=== PATIENT | male | born 1995 | race Caucasian/White ===

== ENCOUNTER 2016-08-15 20:26 | Emergency (ER) | payer OTHER ==
[2016-08-15 20:31] VITALS: BP 108/71
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
== END 2016-08-15 21:10 ==
LOC: ED 20:26
DX: Z04.1 Encounter for examination and observation following transport accident (principal); F17.210 Nicotine dependence, cigarettes, uncomplicated; Z04.8 Encounter for examination and observation for other specified reasons
CPT/HCPCS: 99282

== ENCOUNTER 2016-09-13 08:35 | Emergency (ER) | payer OTHER ==
[2016-09-13] MEDS ORDERED: NS 0.9% 1000 ML* 1,000 ML IV ONE (09:08)
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
--- NOTE | 2016-09-13 09:54 | RAD ---
INDICATION: Dizziness and wheezing. COMPARISON: Comparison is made with a prior chest x-ray study from January 28, 2015. TECHNIQUE: AP and lateral views of the chest were obtained. FINDINGS: The heart is within normal limits in size. Mediastinal and hilar contours appear within normal limits. The lungs are clear. No pleural effusion is present. IMPRESSION: NO EVIDENCE FOR ACTIVE CARDIOPULMONARY DISEASE.
[2016-09-13 09:56] LABS: Hematocrit 44 % (42-52); Hemoglobin 14.6 g/dl (14.0-18.0); Mean Corpuscular HGB Conc 34 g/dl (31-36); Mean Corpuscular Hemoglobin 29 pg (27-31); Mean Corpuscular Volume 86 fL (80-94); Mean Platelet Volume 8 um3 (7.4-10.4); Red Blood Count 5.09 10^6/ul (4.0-5.4); Red Cell Distribution Width 15 % (10.5-15); White Blood Count 13.9 10^3/ul (3.5-10.8)
[2016-09-13] MEDS ORDERED: Mouth Piece, Nicotine* 1 EACH CARTRIDGE INH PRN (10:03)
[2016-09-13 10:13] LABS: Albumin 4.2 g/dL (3.2-5.2); BUN/Creatinine Ratio 13.2 (8-20); Calcium 9.3 mg/dL (8.6-10.3); EGFR African American 102.4 (>60); EGFR Non-African American 79.6 (>60); Globulin 2.9 g/dL (2-4); Potassium 3.7 mmol/L (3.5-5.0); Total Bilirubin 0.3 mg/dL (0.2-1.0); Total Protein 7.1 g/dL (6.4-8.9)
[2016-09-13] MEDS ORDERED: Nicotine Inhaler* 10 MG AMP ONE (10:14)
[2016-09-13] MEDS ORDERED: Nicotine Inhaler* 10 MG AMP INH ONE (10:16)
[2016-09-13 10:39] LABS: TSH (Thyroid Stimulating Horm) 1.73 mcIU/mL (0.34-5.60)
[2016-09-13 11:17] VITALS: BP 137/86
== END 2016-09-13 11:46 | disposition left against medical advice (07) ==
LOC: ED 08:35
DX: R20.0 Anesthesia of skin (principal); F41.1 Generalized anxiety disorder; Z87.898 Personal history of other specified conditions; R53.1 Weakness; Z53.21 Procedure and treatment not carried out due to patient leaving prior to being seen by health care provider
CPT/HCPCS: 36415; 70450; 71020; 72125; 80053; 83605; 83735; 84443; 84484; 85025; 85610; 85730; 99282; A9270-GY

== ENCOUNTER 2016-12-21 14:08 | Emergency (ER) | payer OTHER ==
[2016-12-21 14:49] VITALS: BP 136/83
== END 2016-12-21 17:10 | disposition left against medical advice (07) ==
LOC: UCEAST 14:08
DX: Z53.21 Procedure and treatment not carried out due to patient leaving prior to being seen by health care provider (principal)

== ENCOUNTER 2017-01-03 07:54 | Emergency (ER) | payer OTHER ==
[2017-01-03 08:04] VITALS: BP 124/73
[2017-01-03] MEDS ORDERED: HYDROcodone/ACETAMIN 5-325 MG* 1 TAB PO ONE (08:12)
[2017-01-03] MEDS ORDERED: Ibuprofen TAB* 600 MG PO ONE (08:12)
[2017-01-03] MEDS ORDERED: Amoxicillin/Clavulanate TAB* 875 MG PO ONE (08:13)
[2017-01-03] MEDS ORDERED: Ciprofloxacin TAB* 500 MG PO ONE (08:15)
--- NOTE | 2017-01-03 08:21 | UC ---
Ear Complaint HPI - HPI Summary HPI Summary: L ear pain for about a month. Has noticed "bump" in ear canal, some drainage. Much worse in the last 2 days with marked swelling, drainage, and pain. Cannot hear normally. - History of Current Complaint Chief Complaint: UCEar Stated Complaint: EAR PAIN Time Seen by Provider: 01/03/17 08:03 Hx Obtained From: Patient Onset/Duration: Gradual Onset, Lasting Weeks Severity Initially: Mild Severity Currently: Severe Alleviating Factors: Nothing Associated Signs/Symptoms: Positive: Discharge, Hearing Loss - Allergies/Home Medications Allergies/Adverse Reactions: Allergies Allergy/AdvReac Type Severity Reaction Status Date / Time No Known Allergies Allergy Verified 10/01/16 10:43 PMH/Surg Hx/FS Hx/Imm Hx Previously Healthy: Yes - Surgical History Surgical History: None Surgery Procedure, Year, and Place: none - Family History Known Family History: Positive: Cardiac Disease - CAD and [place] <55, Other - Mother w/ unspecified MH problems, of accidental - Social History Occupation: Employed Full-time Lives: With Family Alcohol Use: Rare Substance Use Type: Marijuana Substance Use Comment - Amount & Last Used: once a moth Smoking Status (MU): Heavy Every Day Tobacco Smoker Type: eCigarettes Amount Used/How Often: 1 ppd Length of Time of Smoking/Using Tobacco: 5 years Have You Smoked in the Last Year: Yes Household Exposure Type: Cigarettes - Immunization History Most Recent Influenza Vaccination: 2013 Most Recent Tetanus Shot: patient states up to date Most Recent Pneumonia Vaccination: never Review of Systems Constitutional: Negative Skin: Negative Eyes: Negative ENT: Ear Ache Respiratory: Negative Cardiovascular: Negative Gastrointestinal: Negative Genitourinary: Negative Motor: Negative Neurovascular: Negative Musculoskeletal: Negative Neurological: Negative Psychological: Negative All Other Systems Reviewed And Are Negative: Yes Physical Exam Triage Information Reviewed: Yes Appearance: Well-Nourished, Pain Distress - mod Vital Signs: Initial Vital Signs Temp 98 F 01/03/17 08:02 Pulse 119 01/03/17 08:02 Resp 20 01/03/17 08:02 BP 124/73 01/03/17 08:02 Pulse Ox 100 01/03/17 08:02 Vital Signs Reviewed: Yes Eye Exam: Normal, Other - PERRL Eyes: Positive: Conjunctiva Clear ENT Exam: Other - swelling around L ear, large preauricular node ENT: Positive: Pharynx normal, TMs normal - R only, Other: - swelling, discharge coming from L ear canal, unable to see L TM Dental Exam: Normal Neck exam: Normal Neck: Positive: Supple, Nontender Respiratory Exam: Normal Respiratory: Positive: Chest non-tender, Lungs clear, Normal breath sounds, No respiratory distress, No accessory muscle use Cardiovascular Exam: Normal Cardiovascular: Positive: RRR, No Murmur Musculoskeletal Exam: Normal Musculoskeletal: Positive: ROM Intact Neurological Exam: Normal Neurological: Positive: Alert Skin Exam: Normal Ear Complaint Course/Dx - Differential Dx/Diagnosis Provider Diagnoses: L ear otitis externa. Elevated blood pressure due to pain Discharge - Discharge Plan Condition: Stable Disposition: HOME Prescriptions: Ciproflox/Dexameth OTIC.SUSP* [Ciprodex OTIC.SUSP*] 4 drop LEFT EAR BID #1 btl Ciprofloxacin HCl [Cipro 500 MG TAB] 500 mg PO BID #14 tab HYDROcodone/ACETAMIN 5-325 MG* [[place] 5-325 TAB*] 1 tab PO Q6H PRN #8 tab MDD 4 PRN Reason: Pain Naproxen Sodium [Naproxen Sodium 500 MG TAB] 500 mg PO BID #20 tab Patient Education Materials: Otitis Externa (ED) Forms: *Work Release Referrals: Pepito Terrazas DO [Primary Care Provider] - 3 Days Doc Aquino MD [Medical Doctor] - 3 Days Additional Instructions: It is important that you have some follow-up early this week to make sure your symptoms are improving. Try to get an appointment with the Ear, Nose, Throat office if possible -- make sure you mention that you were seen here and that we want you seen soon. If they cannot see you, try your primary care provider. If all else fails, you should come back here on Wednesday or Wednesday for wick removal and a recheck.
== END 2017-01-03 08:55 | disposition home or self-care (01) ==
LOC: UCEAST 07:54
DX: H60.92 Unspecified otitis externa, left ear (principal); R03.0 Elevated blood-pressure reading, without diagnosis of hypertension; F17.210 Nicotine dependence, cigarettes, uncomplicated
CPT/HCPCS: 99213; A9270-GY; G0463

== ENCOUNTER 2017-01-03 15:51 | Emergency (ER) | payer OTHER ==
[2017-01-03] MEDS ORDERED: Ketorolac INJ* 60 MG/2 ML VIAL IM ONE (17:57)
[2017-01-03] MEDS ORDERED: oxyCODONE TAB* 5 MG TAB PO ONE (17:57)
--- NOTE | 2017-01-03 18:02 | ED ---
Throat Pain/Nasal Congestion - HPI Summary HPI Summary: 21M presents with left ear pain that got worst last night. He has had the pain for a month. He admits to drainainge and increased pain. He says that he can not hear well from his ear. He denies any history of ear infection. He was seen at urgent care and a wick was placed which caused an increase in pain. He was given norco but says that it did nothing and made him feel sick. He believes this is from the APAP causing the pain. He was given cipro and told to follow up with ENT. He is here for pain control. He states the pain feels inside his ear. He denies any fever. - History of Current Complaint Chief Complaint: EDEarPain Time Seen by Provider: 01/03/17 17:20 - Allergies/Home Medications Allergies/Adverse Reactions: Allergies Allergy/AdvReac Type Severity Reaction Status Date / Time No Known Allergies Allergy Verified 10/01/16 10:43 PMH/Surg Hx/FS Hx/Imm Hx Endocrine/Hematology History: Denies: Hx Diabetes, Hx Thyroid Disease Cardiovascular History: Reports: Other Cardiovascular Problems/Disorders - Pericarditis Denies: Hx Hypertension, Hx Pacemaker/ICD, Hx Peripheral Vascular Disease Respiratory History: Denies: Hx Asthma, Hx Chronic Obstructive Pulmonary Disease (COPD) GI History: Denies: Hx Ulcer Musculoskeletal History: Denies: Hx Arthritis, Hx Osteoporosis Sensory History: Denies: Hx Hearing Aid Psychiatric History: Reports: Hx Substance Abuse, Other Psychiatric Issues/ Disorders - manipulative behavior, has stated suicide intent w/o meaning it; grief rxn Denies: Hx Anxiety, Hx Eating Disorder, Hx Depression, Hx Panic Disorder, Hx of Violent Episodes Against Others - Surgical History Surgery Procedure, Year, and Place: none Infectious Disease History: No Infectious Disease History: Denies: Hx Clostridium Difficile, Hx Hepatitis, Hx Human Immunodeficiency Virus (HIV), Hx of Known/Suspected MRSA, Hx Shingles, Hx Tuberculosis, Hx Known/ Suspected VRE, Hx Known/Suspected VRSA, History Other Infectious Disease, Traveled Outside the [place] in Last 30 Days - Family History Known Family History: Positive: Cardiac Disease - CAD and [place] <55, Other - Mother w/ unspecified MH problems, of accidental - Social History Alcohol Use: None Hx Substance Use: No Substance Use Type: Reports: Marijuana Substance Use Comment - Amount & Last Used: weekly Hx Tobacco Use: Yes Smoking Status (MU): Light Every Day Tobacco Smoker Type: eCigarettdariana Amount Used/How Often: 1 ppd Length of Time of Smoking/Using Tobacco: 5 years Have You Smoked in the Last Year: Yes Review of Systems Negative: Fever Positive: Ear Ache Negative: Chest Pain Negative: Shortness Of Breath All Other Systems Reviewed And Are Negative: Yes Physical Exam Triage Information Reviewed: Yes Vital Signs On Initial Exam: Initial Vitals Temp Pulse Resp BP Pulse Ox 98.7 F 114 16 139/89 96 01/03/17 15:53 01/03/17 15:53 01/03/17 15:53 01/03/17 15:53 01/03/17 15:53 Vital Signs Reviewed: Yes Appearance: Positive: Well-Appearing Skin: Positive: Warm, Dry Head/Face: Positive: Normal Head/Face Inspection Eyes: Positive: Normal, EOMI, JAMI, Conjunctiva Clear ENT: Positive: Pharynx normal, Other - canal erythematous and enlarged, unable to visualize TM, nontender mastoid process and no edema noted Neck: Positive: Supple, Nontender, No Lymphadenopathy Respiratory/Lung Sounds: Positive: Clear to Auscultation, Breath Sounds Present Cardiovascular: Positive: Normal, RRR Diagnostics - Vital Signs Vital Signs Temp Pulse Resp BP Pulse Ox 01/03/17 15:53 98.7 F 114 16 139/89 96 - Laboratory Lab Statement: Any lab studies that have been ordered have been reviewed, and results considered in the medical decision making process. EENT Course/Dx - Course Course Of Treatment: 21M presents with left ear pain that got worst last night. He has had the pain for a month. He admits to drainainge and increased pain. He says that he can not hear well from his ear. He denies any history of ear infection. He was seen at urgent care and a wick was placed which caused an increase in pain. He was given norco but says that it did nothing and made him feel sick. He believes this is from the APAP causing the pain. He was given cipro and told to follow up with ENT. He is here for pain control. He states the pain feels inside his ear. He denies any fever. on exam otitis externa present on left. unable to see TM. nontender of mastoid process and no swelling there. will change from cipro to augmentin to cover otitis externa and switch pain meds. patient understands and agrees with plan - Differential Diagnoses Differential Diagnoses: Otitis Externa, Otitis Media, Sinusitis - Diagnoses Provider Diagnoses: Otitis externa Discharge - Discharge Plan Condition: Good Disposition: HOME Prescriptions: Amoxicillin/Clavulanate TAB* [Augmentin TAB 875*] 875 mg PO BID #20 tab oxyCODONE TAB* [Roxycodone TAB 5 mg*] 5 mg PO Q6H PRN #8 tab MDD 4 PRN Reason: Pain Patient Education Materials: Otitis Externa (ED) Referrals: Doc Aquino MD [Medical Doctor] - Pepito Terrazas DO [Primary Care Provider] - Additional Instructions: Continue antibiotic drops as prescribed by urgent care Switch cipro oral mediation to augmentin twice a day of 10 days Take ibuprofen every 6-8 hours, use narcotic for break through pain Follow up with ENT Return to ED if develop any new or worsening symptoms
[2017-01-03 18:22] VITALS: BP 127/77
== END 2017-01-03 18:26 | disposition home or self-care (01) ==
LOC: ED 15:51
DX: H60.92 Unspecified otitis externa, left ear (principal); H92.02 Otalgia, left ear; F17.210 Nicotine dependence, cigarettes, uncomplicated
CPT/HCPCS: 96372; 99282; A9270-GY; J1885

== ENCOUNTER 2017-03-07 02:42 | Emergency (ER) | payer OTHER ==
[2017-03-07] MEDS ORDERED: NS 0.9% 1000 ML* 2,000 ML IV ONE (04:43)
[2017-03-07 05:06] LABS: Hematocrit 44 % (42-52); Hemoglobin 15.1 g/dl (14.0-18.0); Mean Corpuscular HGB Conc 34 g/dl (31-36); Mean Corpuscular Hemoglobin 28 pg (27-31); Mean Corpuscular Volume 83 fL (80-94); Mean Platelet Volume 8 um3 (7.4-10.4); Red Blood Count 5.33 10^6/ul (4.0-5.4); Red Cell Distribution Width 14 % (10.5-15); White Blood Count 13.8 10^3/ul (3.5-10.8)
[2017-03-07 05:17] LABS: Alcohol < 10 mg/dL (<10)
[2017-03-07 05:18] LABS: ALT 8 U/L (7-52); AST 14 U/L (13-39); Albumin 4.3 g/dL (3.2-5.2); Alkaline Phosphatase 65 U/L (34-104); Anion Gap 8 mmol/L (2-11); BUN/Creatinine Ratio 20.6 (8-20); Blood Urea Nitrogen 21 mg/dL (6-24); CO2 Carbon Dioxide 25 mmol/L (22-32); Calcium 9.1 mg/dL (8.6-10.3); Chloride 102 mmol/L (101-111); EGFR African American 116.4 (>60); EGFR Non-African American 90.5 (>60); Globulin 2.9 g/dL (2-4); Glucose 100 mg/dL (70-100); Potassium 3.6 mmol/L (3.5-5.0); Sodium 135 mmol/L (133-145); Total Protein 7.2 g/dL (6.4-8.9)
[2017-03-07 07:57] VITALS: BP 97/47
[2017-03-07 08:18] LABS: Benzodiazepine Urine Screen None Detected (None Detect)
--- NOTE | 2017-03-19 23:56 | ED ---
Ashu Rosenberg Rebecca, scribed for Dakota Yadav on 03/07/17 at 0327 . Substance Abuse/Use - HPI Summary HPI Summary: Pt is a 21 y/o M BIBA who presents to ED s/p heroin OD. This morning, the pt's girlfriend heard "a loud noise" while laying in bed after which she went downstairs and saw that the pt was unresponsive and in cardiac arrest. She performed CPR prior to EMS arrival. En route to [facility], pt received 2 mg Narcan inhalant and 2 mg IV. Denies SIs. No prior similar episodes of unresponsiveness. Denies using any drugs besides heroin. 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 Aggravating Factor(s): Nothing Alleviating Factor(s): Nothing - Allergies/Home Medications Allergies/Adverse Reactions: Allergies Allergy/AdvReac Type Severity Reaction Status Date / Time No Known Allergies Allergy Verified 03/07/17 02:47 PMH/Surg Hx/FS Hx/Imm Hx Endocrine/Hematology History: Denies: Hx Diabetes, Hx Thyroid Disease Cardiovascular History: Reports: Other Cardiovascular Problems/Disorders - Pericarditis Denies: Hx Hypertension, Hx Pacemaker/ICD, Hx Peripheral Vascular Disease Respiratory History: Denies: Hx Asthma, Hx Chronic Obstructive Pulmonary Disease (COPD) GI History: Denies: Hx Ulcer Musculoskeletal History: Denies: Hx Arthritis, Hx Osteoporosis Sensory History: Denies: Hx Hearing Aid Psychiatric History: Reports: Hx Substance Abuse, Other Psychiatric Issues/ Disorders - manipulative behavior, has stated suicide intent w/o meaning it; grief rxn Denies: Hx Anxiety, Hx Eating Disorder, Hx Depression, Hx Panic Disorder, Hx of Violent Episodes Against Others - Surgical History Surgery Procedure, Year, and Place: none - Immunization History Date of Tetanus Vaccine: utd Date of Influenza Vaccine: none Infectious Disease History: No Infectious Disease History: Denies: Hx Clostridium Difficile, Hx Hepatitis, Hx Human Immunodeficiency Virus (HIV), Hx of Known/Suspected MRSA, Hx Shingles, Hx Tuberculosis, Hx Known/ Suspected VRE, Hx Known/Suspected VRSA, History Other Infectious Disease, Traveled Outside the [place] in Last 30 Days - Family History Known Family History: Positive: Cardiac Disease - CAD and [place] <55, Other - Mother w/ unspecified MH problems, of accidental - Social History Alcohol Use: Rare Hx Substance Use: No Substance Use Type: Reports: Heroin, Marijuana Substance Use Comment - Amount & Last Used: weekly Hx Tobacco Use: Yes Smoking Status (MU): Heavy Every Day Tobacco Smoker Type: eCigarettes Amount Used/How Often: 1 ppd Length of Time of Smoking/Using Tobacco: 5 years Have You Smoked in the Last Year: Yes Review of Systems Positive: Other - Unresponsive 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 Positive: Other - Cardiac arrest 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 Positive: Other - NEGATIVE: SIs All Other Systems Reviewed And Are Negative: Yes Physical Exam - Summary Physical Exam Summary: Appearance: Well appearing, no pain distress Skin: warm, dry, reflects adequate perfusion Head/face: normal Eyes: EOMI, JAMI ENT: normal Neck: supple, nontender Respiratory: CTA, breath sounds present Cardiovascular: regular rhythm, tachycardic, pulses symmetrical Abdomen: nontender, soft Bowel: present Musculoskeletal: normal, strength/ROM intact Neuro: normal, sensory motor intact, A&Ox3 Psych: Anxious Triage Information Reviewed: Yes Vital Signs On Initial Exam: Initial Vitals Temp Pulse Resp BP Pulse Ox 99.6 F 116 17 136/89 95 03/07/17 02:45 03/07/17 02:45 03/07/17 02:45 03/07/17 02:45 03/07/17 02:45 Vital Signs Reviewed: Yes - Tameka Coma Scale Coma Scale Total: 15 Diagnostics - Vital Signs Vital Signs Temp Pulse Resp BP Pulse Ox 03/07/17 02:45 99.6 F 116 17 136/89 95 - Laboratory Result Diagrams: 03/07/17 03:00 03/07/17 03:00 Lab Statement: Any lab studies that have been ordered have been reviewed, and results considered in the medical decision making process. - EKG 0444 Cardiac Rate: NL - 94 bpm EKG Rhythm: Sinus Rhythm EKG Interpretation: No acute changes Course/Dx - Course Assessment/Plan: Pt is a 21 y/o M BIBA who presents to ED s/p heroin OD. This morning, the pt's girlfriend heard "a loud noise" while laying in bed after which she went downstairs and saw that the pt was unresponsive and in cardiac arrest. She performed CPR prior to EMS arrival. En route to [facility], pt received 2 mg Narcan inhalant and 2 mg IV. Denies SIs. No prior similar episodes of unresponsiveness. Denies using any drugs besides heroin. EKG is sinus rhythm with no acute changes. Serum alcohol <10. In the ED course, pt was given fluids. Pt will be D/C to home with Dx of substance abuse and a follow up with his PCP. He understands and agrees. Elevated BP noted and advised to f/u with PCP. Patient medications reviewed this visit. - Diagnoses Provider Diagnoses: Substance abuse Discharge - Discharge Plan Condition: Stable Disposition: HOME Patient Education Materials: Narcotic Abuse (ED) Referrals: Pepito Terrazas DO [Primary Care Provider] - 3 Days The documentation as recorded by the Ashu collins Rebecca accurately reflects the service I personally performed and the decisions made by me, Dakota Yadav.
== END 2017-03-07 07:57 | disposition home or self-care (01) ==
LOC: ED 02:42
DX: F19.10 Other psychoactive substance abuse, uncomplicated (principal)
CPT/HCPCS: 36415; 80053; 80307; 80320; 84484; 85025; 85610; 85730; 93005; 99283; G0480

== ENCOUNTER 2017-04-30 17:34 | Emergency (ER) | payer OTHER ==
[2017-04-30 17:58] VITALS: BP 124/63
--- NOTE | 2017-04-30 18:49 | UC ---
Respiratory Complaint HPI - HPI Summary HPI Summary: Patient presents with a past medial history of lymes disease, pericarditis, and IV heroin drug use, states he has not used in 4 months since he overdosed. He states six days ago he became ill with flu like symptoms. He had generalized body aches, fatigue and malaise. He states then the symptoms moved into his chest, with dyspnea, right sided chest pain, persistent coughing. He also complains of right sided chest pain x two days. - History of Current Complaint Chief Complaint: UCRespiratory Stated Complaint: COUGH Time Seen by Provider: 04/30/17 18:19 Hx Obtained From: Patient Onset/Duration: Gradual Onset, Lasting Days Timing: Constant Severity Initially: Mild Severity Currently: Moderate Character: Cough: Productive Aggravating Factors: Deep Breaths, Recumbent Position Alleviating Factors: Nothing Associated Signs And Symptoms: Positive: Dyspnea, Fever, Chills, URI, Nasal Congestion - Risk Factors Pulmonary Embolism Risk Factors: Negative Cardiac Risk Factors: Negative Tuberculosis Risk Factors: Negative - Allergies/Home Medications Allergies/Adverse Reactions: Allergies Allergy/AdvReac Type Severity Reaction Status Date / Time No Known Allergies Allergy Verified 04/30/17 17:58 Home Medications: Home Medications NK [No Home Medications Reported] 04/30/17 [History Confirmed 04/30/17] PMH/Surg Hx/FS Hx/Imm Hx Previously Healthy: Yes Respiratory History: Pneumonia - Surgical History Surgical History: None Surgery Procedure, Year, and Place: none - Family History Known Family History: Positive: Cardiac Disease - CAD and [place] <55, Other - Mother w/ unspecified MH problems, of accidental - Social History Lives: Alone Alcohol Use: Rare Substance Use Type: Marijuana Substance Use Comment - Amount & Last Used: weekly Smoking Status (MU): Heavy Every Day Tobacco Smoker Type: eCigarettes Amount Used/How Often: 1 ppd Length of Time of Smoking/Using Tobacco: 5 years Have You Smoked in the Last Year: Yes Household Exposure Type: Cigarettes - Immunization History Most Recent Influenza Vaccination: 2013 Most Recent Tetanus Shot: patient states up to date Most Recent Pneumonia Vaccination: never Review of Systems Constitutional: Negative Skin: Negative Eyes: Negative ENT: Negative Respiratory: Shortness Of Breath, Cough Cardiovascular: Negative Gastrointestinal: Negative Genitourinary: Negative Motor: Negative Neurovascular: Negative Musculoskeletal: Negative Neurological: Negative Psychological: Negative All Other Systems Reviewed And Are Negative: Yes Physical Exam Triage Information Reviewed: Yes Appearance: Ill-Appearing Vital Signs: Initial Vital Signs Temp 97.9 F 04/30/17 17:53 Pulse 139 04/30/17 17:53 Resp 18 04/30/17 17:53 BP 124/63 04/30/17 17:53 Vital Signs Reviewed: Yes Eye Exam: Normal ENT Exam: Normal ENT: Positive: Pharyngeal erythema, Nasal congestion, Nasal drainage, Hoarse voice Dental Exam: Normal Neck exam: Normal Neck: Positive: 1 Respiratory Exam: Normal Respiratory: Positive: Respiratory distress, Decreased breath sounds, Accessory muscle use, Crackles, Rhonchi, Wheezing, Expiration Cardiovascular Exam: Normal Cardiovascular: Positive: RRR, Brisk Capillary Refill, Tachycardia Abdominal Exam: Normal Bowel Sounds: Positive: Present Musculoskeletal Exam: Normal Neurological Exam: Normal Psychological Exam: Normal Skin Exam: Normal Respiratory Course/Dx - Course Course Of Treatment: Patient has multiple risk factors reported history of lymes disease, IV brinda use, pericarditis. Presents with six day of illness, tonight with chest pain, dyspnea, unable to speak in full sentences. Chest xray reveals bronchialpneumonia. EKG tachycardici rate of 142 at rest. VSS were otherwise stable. He was offerd ambulance to ED he declinded. He contacted his brother to come and take him to ED. - Differential Dx/Diagnosis Differential Diagnosis/HQI/PQRI: Other - pneumonia Provider Diagnoses: pneumonia. tachycardia Discharge - Discharge Plan Condition: Stable Disposition: OTHER Discharge Disposition Comment: ED Referrals: Pepito Terrazas DO [Primary Care Provider] - Additional Instructions: Patient was told to go directly to the ER, he declined ambulance transport to ER , that was offered three times.
--- NOTE | 2017-04-30 19:01 | RAD ---
INDICATION: Chest pain, cough. Shortness of breath. History of tobacco use. COMPARISON: September 13, 2016 TECHNIQUE: Dual energy PA and routine lateral views of the chest were obtained. REPORT: Patchy alveolar consolidation at the bilateral mid to lower lung zones new compared with the prior exam. Negative for pleural effusion or pneumothorax. The heart, pulmonary vasculature, and mediastinal contours are unremarkable. IMPRESSION: The constellation of findings given the clinical context is consistent with bronchopneumonia. Negative for associated pleural effusions.
== END 2017-04-30 19:31 ==
LOC: UCEAST 17:34
DX: J18.9 Pneumonia, unspecified organism (principal); R00.0 Tachycardia, unspecified; Z72.0 Tobacco use; F12.90 Cannabis use, unspecified, uncomplicated; F11.11 Opioid abuse, in remission
CPT/HCPCS: 71020; 93005; 99211; G0463

== ENCOUNTER 2017-05-01 15:28 | Inpatient (IN) | payer OTHER ==
[2017-05-01] MEDS ORDERED: Cefepime(*) 2 GM in NS 0.9% 50 ML* 50 ML IVPB ONE (16:25)
[2017-05-01] MEDS ORDERED: Acetaminophen TAB* 325 MG PO ONE (16:25)
[2017-05-01] MEDS ORDERED: NS 0.9% 1000 ML*IV.FLUID IV ONE (16:25)
[2017-05-01] MEDS ORDERED: Levofloxacin 750 MG IVPREMIX(* 750 MG/150 ML BAG IVPB ONE (16:25)
[2017-05-01] MEDS ORDERED: Levalbuterol 1.25MG/0.5ML NEB INH ONE ×2 (16:28→17:58)
[2017-05-01] MEDS ORDERED: Ipratropium 0.5MG/2.5ML NEB* 0.5 MG/2.5 ML NEB.SOLN INH ONE (16:28)
[2017-05-01] MEDS ORDERED: Cefepime 2 GM in Dextrose(*) 0 GM/0 ML BAG IV ONE (16:40)
[2017-05-01] MEDS ORDERED: Cefepime 2 GM in Dextrose(*) 2 GM/50 ML BAG IV ONE (17:00)
--- NOTE | 2017-05-01 17:03 | RAD ---
INDICATION: Chest pain and shortness of breath COMPARISON: Chest x-ray dated April 30, 2017 TECHNIQUE: PA and lateral views of the chest were obtained. FINDINGS: The heart and mediastinum are normal in size and contour. There is been an interval increase in patchy infiltrate overlying the lower right lung mostly at the lateral margin. On the lateral view there is patchy infiltrate involving the anterior dependent portion of the left upper lung. Similar findings to a lesser degree are seen at the medial margin of the right middle lobe. Visualized bones are normal for the patient's age. There is no radiographic evidence of free air beneath the diaphragm IMPRESSION: INTERVAL WORSENING IN DENSITY AND DISTRIBUTION OF PATCHY INFILTRATION CONSISTENT WITH WORSENING BRONCHOPNEUMONIA.
[2017-05-01 17:08] LABS: Add Diff/Slide Review? Slide Review Added; Comments Flag Yes; Hematocrit 40 % (42-52); Hemoglobin 13.5 g/dl (14.0-18.0); Mean Corpuscular HGB Conc 34 g/dl (31-36); Mean Corpuscular Hemoglobin 28 pg (27-31); Mean Corpuscular Volume 82 fL (80-94); Mean Platelet Volume 7 um3 (7.4-10.4); Red Blood Count 4.82 10^6/ul (4.0-5.4); Red Cell Distribution Width 14 % (10.5-15); White Blood Count 31.4 10^3/ul (3.5-10.8)
[2017-05-01 17:24] LABS: BUN/Creatinine Ratio 16.9 (8-20); C Reactive Protein 286.66 mg/L (< 5.00); Calcium 9.4 mg/dL (8.6-10.3); EGFR African American 147.7 (>60); EGFR Non-African American 114.8 (>60); Globulin 4.2 g/dL (2-4); Potassium 3.8 mmol/L (3.5-5.0); Total Bilirubin 0.8 mg/dL (0.2-1.0); Total Protein 8.2 g/dL (6.4-8.9)
[2017-05-01 17:25] LABS: Troponin I 0.02 ng/mL (<0.04)
[2017-05-01] MEDS ORDERED: methylPREDNISolone SOD 40 MG* 1 ML VIAL IV ONE (17:38)
--- NOTE | 2017-05-01 18:14 | ED ---
HPI Cardiac - HPI Summary HPI Summary: Pt here w/ cough, chest tightness, SOB, fever. Was dx'd w/ bronchopneumonia yesterday at and told to come here - he did not. He is here today as he says his family "made him" because the doctor at scared them yesterday. He feels his rapid HR yesterday was d/t being aggravated after an argument (139 at rest) . He has not had any tx for this condition yet. Report it started with a cough 1 week ago and has gotten progressively worse. Minimal to no URI sx today other than when he coughs, he feels his sinuses are congested. States he has to work hard at home coughing to bring up phlegm. Denies N/V/D, ab pain, headache, neck pain, skin changes. H/o chest pain - reports he's had this worked up multiple times for fear of endocarditis as he has a h/o heroin use - states he hasn't used in a few weeks. Dx'd w/ pericarditis. When asked if he is utilizing any resources currently for opiate dependence, he said no - he and his brother just decided they didn't want to do it anymore. He denies cravings and states if he needs pain control in the hospital, he's okay with receiving opiates - does not feel this would resurface his habit. He also smokes tobacco and marijuana. He is pending prison time as he missed a court date for alleged burglary. - History of Current Complaint Chief Complaint: EDUpperRespComplaint Stated Complaint: DIFF BREATHING/SENT FROM [facility] Time Seen by Provider: 05/01/17 16:05 Hx Obtained From: Patient Pain Intensity: 2 - Additional Pertinent History Primary Care Physician: [id number] - Allergy/Home Medications Allergies/Adverse Reactions: Allergies Allergy/AdvReac Type Severity Reaction Status Date / Time No Known Allergies Allergy Verified 05/01/17 15:36 PMH/Surg Hx/FS Hx/Imm Hx Previously Healthy: Yes Endocrine/Hematology History: Denies: Hx Anticoagulant Therapy, Hx Blood Disorders, Hx Diabetes, Hx Thyroid Disease Cardiovascular History: Reports: Other Cardiovascular Problems/Disorders - Pericarditis Denies: Hx Hypertension, Hx Pacemaker/ICD, Hx Peripheral Vascular Disease Respiratory History: Denies: Hx Asthma - no dx but thinks he may have this, Hx Chronic Obstructive Pulmonary Disease (COPD) GI History: Denies: Hx Ulcer Musculoskeletal History: Denies: Hx Arthritis, Hx Osteoporosis Sensory History: Denies: Hx Hearing Aid Psychiatric History: Reports: Hx Substance Abuse, Other Psychiatric Issues/ Disorders - manipulative behavior, has stated suicide intent w/o meaning it; grief rxn Denies: Hx Anxiety, Hx Eating Disorder, Hx Depression, Hx Panic Disorder, Hx of Violent Episodes Against Others - Surgical History Surgery Procedure, Year, and Place: none - Immunization History Date of Tetanus Vaccine: utd Date of Influenza Vaccine: none Infectious Disease History: No Infectious Disease History: Denies: Hx Clostridium Difficile, Hx Hepatitis, Hx Human Immunodeficiency Virus (HIV), Hx of Known/Suspected MRSA, Hx Shingles, Hx Tuberculosis, Hx Known/ Suspected VRE, Hx Known/Suspected VRSA, History Other Infectious Disease, Traveled Outside the [place] in Last 30 Days - Family History Known Family History: Positive: Cardiac Disease - CAD and IA <55, Other - Mother w/ unspecified MH problems, of accidental - Social History Lives: With Family Alcohol Use: Rare Hx Substance Use: Yes Substance Use Type: Reports: Heroin - states last used a few weeks ago, Marijuana Hx Tobacco Use: Yes Smoking Status (MU): Current Every Day Smoker Type: eCigarettes Amount Used/How Often: 1 ppd Length of Time of Smoking/Using Tobacco: 5 years Have You Smoked in the Last Year: Yes Review of Systems Positive: Fever Negative: Drainage, Erythema ENT: Other - sinus congestion Negative: Dental Pain, Sore Throat, Ear Ache, Nasal Discharge Positive: Chest Pain - with cough Positive: Shortness Of Breath, Cough Gastrointestinal: Negative Positive: no symptoms reported Musculoskeletal: Negative Skin: Negative Neurological: Negative Positive: Anxious All Other Systems Reviewed And Are Negative: Yes Physical Exam Triage Information Reviewed: Yes Vital Signs On Initial Exam: Initial Vitals Temp Pulse Resp BP Pulse Ox 100.1 F 126 18 126/77 97 05/01/17 15:32 05/01/17 15:32 05/01/17 15:32 05/01/17 15:32 05/01/17 15:32 Vital Signs Reviewed: Yes Appearance: Positive: Ill-Appearing - generalized pallor, tachypnic, dark circles around eyes, coughs easily Skin: Positive: Warm, Dry - no obvious track huber Head/Face: Positive: Normal Head/Face Inspection Eyes: Positive: Normal, EOMI, JAMI, Conjunctiva Clear. Negative: Conjunctiva Inflammed, Discharge ENT: Positive: Hearing grossly normal, Pharyngeal erythema - cobblestoning, Nasal congestion, TMs normal. Negative: Nasal drainage, Tonsillar swelling, Tonsillar exudate, Trismus, Muffled voice, Hoarse voice Dental: Negative: Abscess @ Neck: Positive: Supple, Nontender, No Lymphadenopathy Respiratory/Lung Sounds: Positive: Breath Sounds Present - distant, Decreased Breath Sounds. Negative: Rales, Rhonchi, Stridor, Tracheal Deviation, Wheezes Cardiovascular: Positive: Pulses are Symmetrical in both Upper and Lower Extremities, Tachycardia, S1, S2. Negative: Murmur, Rub Abdomen Description: Positive: Nontender, No Organomegaly, Soft Bowel Sounds: Positive: Present Musculoskeletal: Positive: Normal, Strength/ROM Intact Neurological: Positive: Normal, Sensory/Motor Intact, Alert, Oriented to Person Place, Time, CN Intact II-III Psychiatric: Positive: Anxious - subtle; cooperative, concerned, polite - [place] Coma Scale Coma Scale Total: 15 Diagnostics - Vital Signs Vital Signs Temp Pulse Resp BP Pulse Ox 05/01/17 18:00 119 126/56 99 05/01/17 17:30 129/64 05/01/17 17:09 122 127/70 99 05/01/17 17:02 97 05/01/17 17:00 117 97 05/01/17 16:41 114 14 97 05/01/17 16:30 118 118/68 96 05/01/17 16:19 112 94 05/01/17 16:17 130/74 05/01/17 15:32 100.1 F 126 18 126/77 97 - Laboratory Lab Results: Lab Results 05/01/17 05/01/17 05/01/17 Range/Units 16:58 16:58 16:58 WBC 31.4 H (3.5-10.8) 10^3/ul RBC 4.82 (4.0-5.4) 10^6/ul Hgb 13.5 L (14.0-18.0) g/dl Hct 40 L (42-52) % MCV 82 (80-94) fL MCH 28 (27-31) pg MCHC 34 (31-36) g/dl RDW 14 (10.5-15) % Plt Count 389 (150-450) 10^3/ul MPV 7 L (7.4-10.4) um3 Neut % (Auto) 84.7 H (38-83) % Lymph % (Auto) 7.4 L (25-47) % [place] % (Auto) 7.4 (1-9) % Eos % (Auto) 0.1 (0-6) % Baso % (Auto) 0.4 (0-2) % Absolute Neuts (auto) 26.6 H (1.5-7.7) 10^3/ul Absolute Lymphs (auto) 2.3 (1.0-4.8) 10^3/ul Absolute Monos (auto) 2.3 H (0-0.8) 10^3/ul Absolute Eos (auto) 0 (0-0.6) 10^3/ul Absolute Basos (auto) 0.1 (0-0.2) 10^3/ul Absolute Nucleated RBC 0 10^3/ul Nucleated RBC % 0 INR (Anticoag Therapy) 1.30 H (0.89-1.11) APTT 30.8 (26.0-36.3) seconds D-Dimer, Quantitative 939 H (Less Than 230) ng/mL Sodium 132 L (133-145) mmol/L Potassium 3.8 (3.5-5.0) mmol/L Chloride 99 L (101-111) mmol/L Carbon Dioxide 23 (22-32) mmol/L Anion Gap 10 (2-11) mmol/L BUN 14 (6-24) mg/dL Creatinine 0.83 (0.67-1.17) mg/dL Est GFR ( Amer) 147.7 (>60) Est GFR (Non-Af Amer) 114.8 (>60) BUN/Creatinine Ratio 16.9 (8-20) Glucose 103 H (70-100) mg/dL Lactic Acid (0.5-2.0) mmol/L Calcium 9.4 (8.6-10.3) mg/dL Total Bilirubin 0.80 (0.2-1.0) mg/dL AST 20 (13-39) U/L ALT 19 (7-52) U/L Alkaline Phosphatase 65 (34-104) U/L Troponin I 0.02 (<0.04) ng/mL C-Reactive Protein 286.66 H (< 5.00) mg/L Total Protein 8.2 (6.4-8.9) g/dL Albumin 4.0 (3.2-5.2) g/dL Globulin 4.2 H (2-4) g/dL Albumin/Globulin Ratio 1.0 (1-3) 11/18/17 Range/Units 16:58 WBC (3.5-10.8) 10^3/ul RBC (4.0-5.4) 10^6/ul Hgb (14.0-18.0) g/dl Hct (42-52) % MCV (80-94) fL MCH (27-31) pg MCHC (31-36) g/dl RDW (10.5-15) % Plt Count (150-450) 10^3/ul MPV (7.4-10.4) um3 Neut % (Auto) (38-83) % Lymph % (Auto) (25-47) % [place] % (Auto) (1-9) % Eos % (Auto) (0-6) % Baso % (Auto) (0-2) % Absolute Neuts (auto) (1.5-7.7) 10^3/ul Absolute Lymphs (auto) (1.0-4.8) 10^3/ul Absolute Monos (auto) (0-0.8) 10^3/ul Absolute Eos (auto) (0-0.6) 10^3/ul Absolute Basos (auto) (0-0.2) 10^3/ul Absolute Nucleated RBC 10^3/ul Nucleated RBC % INR (Anticoag Therapy) (0.89-1.11) APTT (26.0-36.3) seconds D-Dimer, Quantitative (Less Than 230) ng/mL Sodium (133-145) mmol/L Potassium (3.5-5.0) mmol/L Chloride (101-111) mmol/L Carbon Dioxide (22-32) mmol/L Anion Gap (2-11) mmol/L BUN (6-24) mg/dL Creatinine (0.67-1.17) mg/dL Est GFR ( Amer) (>60) Est GFR (Non-Af Amer) (>60) BUN/Creatinine Ratio (8-20) Glucose (70-100) mg/dL Lactic Acid 1.3 (0.5-2.0) mmol/L Calcium (8.6-10.3) mg/dL Total Bilirubin (0.2-1.0) mg/dL AST (13-39) U/L ALT (7-52) U/L Alkaline Phosphatase (34-104) U/L Troponin I (<0.04) ng/mL C-Reactive Protein (< 5.00) mg/L Total Protein (6.4-8.9) g/dL Albumin (3.2-5.2) g/dL Globulin (2-4) g/dL Albumin/Globulin Ratio (1-3) Result Diagrams: 05/01/17 16:58 05/01/17 16:58 Lab Statement: Any lab studies that have been ordered have been reviewed, and results considered in the medical decision making process. Re-Evaluation - Re-Evaluation First Eval Change: Improved - pt reports improved chest tightness s/p xoponex/ipratroprium bromide neb - coughed up some phelgm; chest auscultation reveals diffuse wheezing - still coughing with deep breathes and tachypnic - appears a little more comfortable Disposition - Course Course Of Treatment: Pt presents w/ cough, fever, and SOB. He was dx'd w/ bronchopneumonia yesterday and advised to go to ED - he declined. Here today with fever, tachycardia, pulse ox < 95% (low 90's on room air - improved to mid- high 90's w/ 2L 02 via NC). Chest is tight and decreased breath sounds - pt reports some improvement of chest tightness s/p xoponex/ipratroprium bromide - wheezing with auscultation and still tachypnic -pulse ox stays above 95% with 2L 02. CXR report indicates worsening of bronchopneumonia. Labs: WBC 31.4; Hgb 13.5; Hct 40; MPV 7; neut % 84.7; mono % 7.4; abs neut 26.6; abs mono 2.3; INR 1.3; D-DIMER 939; Na 132; chlo 99; glucose 103; lactic 1.3; Troponin 0.02; CRP 286.66; globulin 4.2. Pt received IVF and anbx according to SIRS protcol. D/t SOB, tachypnea, fever and elevated D-dimer with h/o smoking and using heroin , CTA was ordered to assess for emboli. Conversation with pt re: necessity for admission. He is reluctant as he was hoping to spend the next 4 days with family before he has to go to prison. He eventually voices understanding coming into the hospital is the best choice and he agrees w/ plan. Spoke w/ Dr. Frederick and Dr. Nice who agrees to admit. Critical care time: 30 minutes - Diagnoses Provider Diagnoses: Sepsis, Bronchopneumonia, Respiratory distress Discharge - Discharge Plan Condition: Guarded Disposition: ADMITTED TO [facility] Referrals: Pepito Terrazas DO [Primary Care Provider] -
[2017-05-01] MEDS ORDERED: Iohexol 350* (CONTRAST) 500 ML MDV IV ONE (18:55)
[2017-05-01] MEDS ORDERED: LORazepam TAB(*) 0.5 MG PO ONE (19:23)
--- NOTE | 2017-05-01 19:41 | RAD ---
INDICATION: Chest pain, tachycardia and elevated d-dimer COMPARISON: Multiple chest x-rays, most recently from the same date. TECHNIQUE: Axial source images were acquired following the administration of 60 mL Omnipaque [address] angiographic technique. Coronal and sagittal reconstructed images were constructed and reviewed. FINDINGS: There there are no filling defects in the pulmonary arteries to indicate acute pulmonary embolic disease. Corresponding to the recent chest x-rays, there are multifocal infiltrates involving predominantly the left lower lobe and the lower portions of the right lower lobe. There are multifocal infiltrates in the right middle lobe and dependent portions of the right lower lobe. The heart is normal in size. There is no evidence of pericardial effusion. There is no evidence of aortic aneurysm or dissection. The visualized osseous structures appear normal. Limited views of the upper abdomen show no abnormalities. IMPRESSION: 1. No CT of evidence of pulmonary embolism. 2. There are multifocal infiltrates involving all lobes which have a distribution most consistent with septic emboli.
[2017-05-01] MEDS ORDERED: NS 0.9% 1000 ML* 1,000 ML IV ONE (19:48)
[2017-05-01] MEDS ORDERED: Vancomycin(*) 1,250 MG in NS 0.9% 250 ML* 250 ML IVPB ONE (20:00)
[2017-05-01] MEDS ORDERED: Albuterol/Ipratropium NEB.SOL* Albuterol 2.5 MG/Ipratropium 0.5 MG 3 ML INH PRN (21:00)
[2017-05-01] MEDS: NS 0.9% 1000 ML* 1,000 ML IV SCH (21:35)
[2017-05-01] MEDS ORDERED: Vancomycin per Pharmacy* NOTE FOLLOW UP PRN (21:51)
[2017-05-01 22:46] LABS: Urine Bacteria Absent (Absent); Urine Bilirubin Negative (Negative); Urine Glucose Negative (Negative); Urine Nitrite Negative (Negative)
[2017-05-02] MEDS ORDERED: HYDROmorphone INJ* 2 MG/ML CARPUJECT SYRINGE IV SLOW PU PRN (00:43)
--- NOTE | 2017-05-02 01:24 | HP ---
HISTORY AND PHYSICAL: DATE OF ADMISSION: 05/01/17 ADMITTING PROVIDER: Marino Nice MD. CHIEF COMPLAINT: Achiness, general malaise, productive cough, fevers, chills. HISTORY OF PRESENT ILLNESS: Adrian Hernandez is a 21-year-old male with a past medical history of recent IV drug abuse, intermittent chest pains 2 years ago, concern for pericarditis (Lyme disease negative serology), presenting with seven days of general malaise, productive cough with green sputum, sinus congestions, fevers, chills (did not take temperature at home), chest tightness. He has actually felt better over the last 3 days, but found out that he had inadvertently missed one of his court appearances and needing to prove that he was sick he presented to the urgent care center the day prior to admission (04/30/17). There he had an EKG with a heart rate of 142 and the chest x-ray concerning for bronchopneumonia. He was advised to present to the emergency room and was offered an ambulance transportation, but declined preferring to ask his brother to later bring him to the emergency room. He returned to the emergency room today as his symptoms continued. He is a 1 pack a day smoker and is currently still smoking, but has reduced to about 1 pack over the last week given his continued symptoms. He has chest tightness in his right anterior chest just below the nipple and he has had similar sensations couple of years ago when he was on a bus trip traveling from [place] up to [place], [place] and did not receive any medical evaluation at that time, but reports that that episode seemed worse than this one. In the emergency room , he was found to be tachycardic to 126, temperature of 100.1, normotensive, satting high 90s on 2 L oxygen. His initial white count was 31.4. No lactic acidosis. Elevated INR to 1.30 and D-dimer 939. CT chest angiogram is pending. Influenza swabs were negative. Chest x-ray was significant for worsening patchy pneumonia worse on the left base. His lung exam was tight. He received 60 mg of Solu-Medrol, Xopenex and ipratropium neb along with cefepime and levofloxacin. He has been referred to hospitalist service for admission for sepsis secondary to pneumonia. He has been taking Theraflu, ibuprofen and Mucinex at home, only the Mucinex which seemed to help his chest and nasal congestion. PAST MEDICAL HISTORY: IV heroin abuse; last used 8 weeks ago (03/07/17), since claims sober. MEDICATIONS: Nothing chronic, only: 1. Theraflu. 2. Ibuprofen. 3. Mucinex [id number] recently. ALLERGIES: No known drug allergies. FAMILY HISTORY: Of his 4 brothers; 2 have had lung collapses, third has lymphoblastic leukemia. Mother of a sudden heart attack at age 47. Father was an alcoholic, but otherwise has no knowledge of his medical status or even his age. Does not have contact with him. SOCIAL HISTORY: Currently unemployed. 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 One pack a day smoker. Recently cut back in the setting of his illness. Recent severe heroin abuse, last use 03/07/17, after which he quit cold turkey with the help of his mother's brother who basically sat with him each night trying to get him through his cravings. Previously had attempted Suboxone use when he was using heroin actively. No alcohol use every day. Frequent marijuana smoker. Medical surrogate is brother Tommy Hernandez. He is a full code. REVIEW OF SYSTEMS: A complete 14-point review of systems is negative except for HPI. Denies any abdominal pain, nausea, vomiting, rashes, recent travel, insect bites, headaches, vision changes, melena, hematochezia. Does have chest tightness, malaise, productive cough, sinus congestion, chest congestion, fevers , chills. Denies night sweats. No change in weight. PHYSICAL EXAMINATION GENERAL APPEARANCE: No acute distress. Pupils somewhat dilated, sitting up in bed. Anxious appearing. VITAL SIGNS: Temperature 100.1, pulse rate 121, blood pressure 127/52, satting 97% on 2 L, respiratory rate 14. HEENT: Normocephalic, atraumatic. Pupils are equally round and reactive to light. Extraocular motions intact. NECK: No cervical lymphadenopathy. Neck supple. PULMONARY: Clear to auscultation bilaterally, but with bilateral equal excursions, but somewhat tight with reduced air exchange. No wheezing, rhonchi or rales (of note, just received breathing treatment). CARDIOVASCULAR: Normal S1 and S2. No murmurs, rubs, or gallops. Tachycardic. ABDOMEN: Soft, nontender, nondistended. No rebound or guarding. No Oden's sign. EXTREMITIES: Warm, well perfused. No peripheral edema. NEUROLOGIC: Cranial nerves II through XII intact. Software Engineer Sales strength intact. Lower extremity strength intact. Sensation intact. SKIN: No lesions. No rashes. DIAGNOSTIC STUDIES/LABORATORY DATA: Laboratory evaluations: White count 31.4 , hemoglobin 13.5, hematocrit 40, neutrophils 84.7%. INR is 1.30. D-dimer 939. Sodium 132, potassium 3.8, chloride 99, carbon dioxide 23, BUN 14, creatinine 0.83, glucose 103, lactic acid 1.3. Total bili 0.8, AST 20, ALT 19, alk phos 65, lactate dehydrogenase 260. C-reactive protein 286 and troponin 0.02. IMAGING: Chest x-ray. Impression: Interval worsening in density and distribution of patchy infiltration consistent with worsening bronchopneumonia. EKG: Sinus tachycardia. Heart rate 121. Normal intervals. QTc prolonged at 470. No ST changes. T-wave inversion in V1. ASSESSMENT AND PLAN: The patient is a 21-year-old male with a history of intravenous heroin abuse, recently sober for the last 2 months, presenting with sepsis secondary to pneumonia. The patient was started on cefepime and Levaquin in the emergency room. Follow up blood cultures, sputum culture, urinalysis, urine legionella and Strep pneumoniae urinary antigen. Continue cefepime. We will get HIV and hepatitis C test. LDH was within normal limits and the patient reports a history of remote HIV test as being normal and does not attest to any shared needle use between other people. We will follow up the CT chest angiogram that was ordered in the emergency room for his elevated D -dimer. Given his relatively tight lung exam, current smoking and history of tight lung exams dating back to 2014, the patient may have some sort of underlying asthma, bronchospastic process. Continue DuoNeb q.2 hours p.r.n. and consider empiric steroids that were continued in the emergency room. Some current concern is the patient's willingness to stay in the hospital. The patient attests that tomorrow is his birthday, though on chart review, his birthday is listed as 2 days from admission, and he has already made arrangements to have dinner with his grandmother and is very anxious about missing out on celebrations, given he also has a pending possible [place] [facility] term starting in 4 days for apparently the charge of ben. He is currently attesting that. He will call his brother who he is obviously very close to, get his advice, but is threatening to leave the hospital, but "promise to come back tomorrow or the next day to receive further treatments." I expressed to him that this was not at all in his best interest and that he must focus on his health, and given the severity of his sickness issue towards making sure he is actually alive to celebrate his 23th birthday rather than trying to celebrate his 22th. The patient is currently a full code. Medical surrogate is brother Tommy Hernandez. He will be admitted to inpatient status on medicine/telemetry floor. Continue some maintenance IV fluids for now. He can eat an unrestricted diet. We will consider a social work consult given his challenging legal situation. We will get CBCs and BMPs daily. He is also slightly hyponatremic. We will monitor that. Addendum: CTA with concern for septic emboli. TTE ordered and vancomycin started. Sputum GS with [facility]. [id number]/CPS #: [id number] MTDD
[2017-05-02] MEDS: Cefepime 2 GM in Dextrose(*) 2 GM/50 ML BAG IV SCH ×4 (01:57→17:49)
[2017-05-02] MEDS: Vancomycin(*) 1,000 MG in NS 0.9% 250 ML* 250 ML IVPB SCH ×3 (02:43→15:50)
[2017-05-02 05:06] LABS: Hematocrit 34 % (42-52); Hemoglobin 11.2 g/dl (14.0-18.0); Mean Corpuscular HGB Conc 33 g/dl (31-36); Mean Corpuscular Hemoglobin 28 pg (27-31); Mean Corpuscular Volume 84 fL (80-94); Mean Platelet Volume 7 um3 (7.4-10.4); Red Blood Count 4.02 10^6/ul (4.0-5.4); Red Cell Distribution Width 14 % (10.5-15)
[2017-05-02 05:16] LABS: Comments Flag Yes
[2017-05-02 05:22] LABS: BUN/Creatinine Ratio 21.2 (8-20); Calcium 8.4 mg/dL (8.6-10.3); EGFR African American 192.4 (>60); EGFR Non-African American 149.6 (>60); Potassium 4.4 mmol/L (3.5-5.0)
[2017-05-02] MEDS ORDERED: Influenza VAC *QUAD* 2017-18* 0.5 ML SYRINGE IM ONE (09:00)
[2017-05-02] MEDS ORDERED: Pneumococcal *Vac Polyvalent 0.5 ML VIAL IM ONE (09:00)
[2017-05-02] MEDS: Nicotine GUM* 2 MG PO PRN ×2 (09:42→21:43)
[2017-05-02] MEDS: LORazepam TAB(*) 0.5 MG PO PRN ×2 (09:43→17:57)
[2017-05-02] MEDS ORDERED: NS 0.9% 250 ML* 500 ML ONE (11:56)
[2017-05-02] MEDS ORDERED: HYDROmorphone INJ* 1 MG/ML CARPUJECT SYRINGE IV SLOW PU PRN (12:30)
[2017-05-02] MEDS ORDERED: HYDROmorphone INJ* 1 MG/ML CARPUJECT SYRINGE ONE (12:37)
--- NOTE | 2017-05-02 13:31 | ECHO ---
Patient: HUNG SAMUEL [facility] Rec#: [id number] : 1995 Date: 05/02/2017 Age: 21y Height: 175.3 cm / 69.0 in Weight: 62.1 kg / 136.9 lbs Sex: M BSA: 1.76 Room#: [facility] Admit Date#: 05/01/2017 Type: Inpatient Referring: Marino Nice Reading: Samreen Bañuelos MD Historical Site Guide: Yulia Roberto RN RDCS CC: Nini IGNACIO,Pepito Transthoracic Echocardiogram Indication: Fever BP: 117/59 HR: 69 Rhythm: NSR Findings History: IVDA, marijuana use, tobacco use, intermittent chest pain 2 years ago with concern for pericarditis, admitted with sepsis and pneumonia. Technical Comments: The study quality is good. Completed at 1200. Left Ventricle: The left ventricular chamber size, wall thickness and systolic function are within normal limits. There are no wall motion abnormalities The estimated ejection fraction is 55-60%. Normal left ventricular diastolic filling is observed. Left Atrium: The left atrial chamber size is normal. Right Ventricle: The right ventricular chamber size and systolic function are within normal limits. Right Atrium: The right atrium is slightly dilated. Aortic Valve: The aortic valve is trileaflet. There is no evidence of aortic regurgitation. There is no evidence of aortic stenosis. There is no aortic vegetation present. Mitral Valve: The mitral valve leaflets are mildly thickened. There is mild mitral regurgitation. There is no evidence of mitral stenosis. No vegetation is observed on the mitral valve. Tricuspid Valve: The tricuspid valve leaflets are normal. There is mild tricuspid regurgitation. The right ventricular systolic pressure is estimated at 37 mmHg. There is evidence of mild pulmonary hypertension. There is no tricuspid stenosis. No vegetation is observed on the tricuspid valve. Pulmonic Valve: The pulmonic valve appears normal. There is mild pulmonic regurgitation. There is no pulmonic stenosis. No vegetation is observed on the pulmonic valve. Pericardium: A trivial pericardial effusion is visualized. Aorta: There is no dilatation of the ascending aorta. There is no dilatation of the aortic arch. There is no dilation of the aortic root. Pulmonary Artery: The main pulmonary artery appears normal. Venous: The inferior vena cava appears normal in size. There is a greater than 50% respiratory change in the inferior vena cava dimension. Conclusions The left ventricular chamber size, wall thickness and systolic function are within normal limits. There are no wall motion abnormalities The estimated ejection fraction is 55-60%. The right ventricular chamber size and systolic function are within normal limits. No vegetations seen on any valve and all 4 valves seen with good image quality. The aortic valve is trileaflet with normal function. There is mild mitral regurgitation. There is mild tricuspid regurgitation. There is mild pulmonic regurgitation. The PA pressure is mildly increased at 37 mmHg. Compared with prior echo of 01/29/15, MR presviously trace, TR is new, AL is stable, PA pressure not previously estimated. There is evidence of mild pulmonary hypertension. Measurements Name Value Normal Range RVIDd (AP) 2D 3.1 cm (0.9 - 2.6) RVDdMajor (2D) 4.1 cm (2.2 - 4.4) RAd ISD 4CH 5 cm (3.4 - 4.9) RA (A4C)W 4.2 cm (2.9 - 4.6) IVSd (2D) 1.2 cm (0.6 - 1) LVPWd (2D) 1.2 cm (0.6 - 1) LVIDd (2D) 4.4 cm (3.6 - 5.4) LVIDs (2D) 3.2 cm - LV FS (2D) 27 % (25 - 45) Aortic Annulus 2.3 cm (1.4 - 2.6) Ao root diameter (2D) 3.1 cm (2.1 - 3.5) Ascending Ao 2.5 cm (2.1 - 3.4) Aortic arch 2.6 cm (1.8 - 3.4) LA dimension (AP) 2D 3.5 cm (2.3 - 3.8) LAd ISD 4CH 4.9 cm (2.9 - 5.3) LA ISD 4CH W 4.3 cm (2.5 - 4.5) Name Value Normal Range LA ESV SP 4CH (A/L) 50 ml - LA ESV SP 2CH (A/L) 56 ml - LA ESV BP (A/L) 54 ml - LA ESV BP (A/L) index 30.4 ml/m2 - LA ESV SP 4CH (MOD) 46 ml - LA ESV SP 2CH (MOD) 51 ml - Name Value Normal Range MV E-wave Vmax 1 m/sec - MV deceleration time 267 msec - MV A-wave Vmax 0.68 m/sec - MV E:A ratio 1.5 ratio - LV septal e' Vmax 0.14 m/sec - LV lateral e' Vmax 0.15 m/sec - LV E:e' septal ratio 7.1 ratio - LV E:e' lateral ratio 6.7 ratio - Name Value Normal Range AV Vmax 1.6 m/sec - AV VTI 33.2 cm - AV peak gradient 10.3 mmHg - AV mean gradient 4.5 mmHg - LVOT Vmax 1.4 m/sec - LVOT VTI 27.6 cm - LVOT peak gradient 7.4 mmHg - LVOT mean gradient 4.2 mmHg - JAMIE Vmax 1.5 m/sec - Name Value Normal Range TR Vmax 2.9 m/sec - TR peak gradient 34 mmHg - RAP 3 mmHg - RVSP 37 mmHg - IVC diameter 1.9 cm - Name Value Normal Range PV Vmax 0.92 m/sec -
[2017-05-02] MEDS ORDERED: Vancomycin Trough Check NOTE FOLLOW UP ONE (14:30)
--- NOTE | 2017-05-02 14:43 | PN ---
Subjective Date of Service: 05/02/17 Interval History: Fevers abated, Tachycardia much improved. Feeling better. Still pleurtic chest discomfort and vary anxious among other things "breathing air that 100 other people have breathed". Asking to walk outside and shower. Sweats last night. ECHO w/o vegetation. HIV and HepC negative. BCx still pending. H Flu on sputum. Objective Active Medications: Acetaminophen (Tylenol Tab*) 650 mg PO Q6H PRN PRN Reason: FEVER/PAIN Albuterol/Ipratropium (Duoneb (Albuterol 2.5 Mg/Ipratropium 0.5 Mg)) 1 neb INH Q2H PRN PRN Reason: SOB/WHEEZING Sodium Chloride (Ns 0.9% 1000 Ml*) 1,000 mls @ 125 mls/hr IV PER RATE [facility] Last Admin: 05/01/17 21:35 Dose: 125 mls/hr Cefepime HCl (Maxipime 2 Gm In Dextrose Duplex (*)) 2 gm in 50 mls @ 100 mls/ hr IV Q8H [facility] Last Admin: 05/02/17 11:14 Dose: 100 mls/hr Vancomycin HCl 1,000 mg/ (Sodium Chloride) 250 mls @ 166.667 mls/hr IVPB Q6H [facility] Last Admin: 05/02/17 08:32 Dose: 166.667 mls/hr Ketorolac Tromethamine (Toradol Tab *) 10 mg PO Q6H PRN PRN Reason: PAIN Lorazepam (Ativan Tab(*)) 0.5 mg PO Q4H PRN PRN Reason: ANXIETY Last Admin: 05/02/17 09:43 Dose: 0.5 mg Nicotine (Nicotine Patch 21 Mg/24 Hr*) 1 patch TRANSDERM DAILY@0800 [facility] Nicotine Polacrilex (Nicotine Gum*) 2 mg PO Q2H PRN PRN Reason: CRAVING Last Admin: 05/02/17 09:42 Dose: 2 mg Pharmacy Consult (Vancomycin Per Pharmacy*) 1 note FOLLOW UP . PRN PRN Reason: PER PROTOCOL Pharmacy Profile Note (Nicotine Patch Removal Note*) 1 note FOLLOW UP 2100 [facility] Vital Signs 05/01/17 05/01/17 05/01/17 19:50 20:30 22:00 Temperature 97.9 F Pulse Rate 117 Respiratory 19 Rate Blood Pressure 117/59 (mmHg) O2 Sat by Pulse 96 Oximetry 05/01/17 05/02/17 05/02/17 23:22 02:10 03:11 Temperature 98.2 F Pulse Rate 109 Respiratory 16 18 19 Rate Blood Pressure 115/70 (mmHg) O2 Sat by Pulse 95 Oximetry 05/02/17 05/02/17 05/02/17 03:18 04:50 07:41 Temperature 98.8 F 98.7 F Pulse Rate 93 72 Respiratory 16 17 16 Rate Blood Pressure 113/64 126/66 (mmHg) O2 Sat by Pulse 97 97 Oximetry 05/02/17 05/02/17 05/02/17 08:00 09:43 12:17 Temperature 98.8 F Pulse Rate 89 Respiratory 12 20 20 Rate Blood Pressure 129/72 (mmHg) O2 Sat by Pulse 95 Oximetry 05/02/17 05/02/17 05/02/17 12:31 12:42 13:45 Temperature 98.9 F Pulse Rate 83 Respiratory 32 32 32 Rate Blood Pressure 130/69 (mmHg) O2 Sat by Pulse 94 Oximetry Oxygen Devices in Use Now: None Appearance: Greatly improved appearing though still somewhat anxious. Eyes: No Scleral Icterus, PERRLA Ears/Nose/Mouth/Throat: NL Teeth, Lips, Gums, Mucous Membranes Moist Neck: NL Appearance and Movements; NL JVP, Trachea Midline Respiratory: Symmetrical Chest Expansion and Respiratory Effort, - - slightly tight but improved compared to yesterday, no wheezing or rhonchi Cardiovascular: NL Sounds; No Murmurs; No JVD, RRR Abdominal: NL Sounds; No Tenderness; No Distention Extremities: No Edema Skin: No Rash or Ulcers, No Nodules or Sclerosis Neurological: Alert and Oriented x 3, NL Sensation, NL Muscle Strength and Tone Result Diagrams: 05/02/17 04:57 05/02/17 04:57 Additional Lab and Data: Laboratory Results - last 24 hr 05/01/17 05/01/17 05/01/17 16:58 16:58 16:58 WBC 31.4 H RBC 4.82 Hgb 13.5 L Hct 40 L MCV 82 MCH 28 MCHC 34 RDW 14 Plt Count 389 MPV 7 L Neut % (Auto) 84.7 H Lymph % (Auto) 7.4 L [place] % (Auto) 7.4 Eos % (Auto) 0.1 Baso % (Auto) 0.4 Absolute Neuts (auto) 26.6 H Absolute Lymphs (auto) 2.3 Absolute Monos (auto) 2.3 H Absolute Eos (auto) 0 Absolute Basos (auto) 0.1 Absolute Nucleated RBC 0 Nucleated RBC % 0 INR (Anticoag Therapy) 1.30 H APTT 30.8 Fibrinogen 822 H D-Dimer, Quantitative 939 H Sodium 132 L Potassium 3.8 Chloride 99 L Carbon Dioxide 23 Anion Gap 10 BUN 14 Creatinine 0.83 Est GFR ( Amer) 147.7 Est GFR (Non-Af Amer) 114.8 BUN/Creatinine Ratio 16.9 Glucose 103 H Lactic Acid Calcium 9.4 Total Bilirubin 0.80 AST 20 ALT 19 Alkaline Phosphatase 65 Lactate Dehydrogenase Troponin I 0.02 C-Reactive Protein 286.66 H Total Protein 8.2 Albumin 4.0 Globulin 4.2 H Albumin/Globulin Ratio 1.0 Urine Color Urine Appearance Urine pH Ur Specific [place] Urine Protein Urine Ketones Urine Blood Urine Nitrate Urine Bilirubin Urine Urobilinogen Ur Leukocyte Esterase Urine WBC (Auto) Urine RBC (Auto) Urine Bacteria Urine Glucose Vancomycin Trough Hepatitis C Antibody HIV 1&2 Antibody Influenza A (Rapid) Influenza B (Rapid) 05/01/17 05/01/17 05/01/17 16:58 16:58 16:58 WBC RBC Hgb Hct MCV MCH MCHC RDW Plt Count MPV Neut % (Auto) Lymph % (Auto) [place] % (Auto) Eos % (Auto) Baso % (Auto) Absolute Neuts (auto) Absolute Lymphs (auto) Absolute Monos (auto) Absolute Eos (auto) Absolute Basos (auto) Absolute Nucleated RBC Nucleated RBC % INR (Anticoag Therapy) APTT Fibrinogen D-Dimer, Quantitative Sodium Potassium Chloride Carbon Dioxide Anion Gap BUN Creatinine Est GFR ( Amer) Est GFR (Non-Af Amer) BUN/Creatinine Ratio Glucose Lactic Acid 1.3 Calcium Total Bilirubin AST ALT Alkaline Phosphatase Lactate Dehydrogenase 260 Troponin I C-Reactive Protein Total Protein Albumin Globulin Albumin/Globulin Ratio Urine Color Urine Appearance Urine pH Ur Specific [place] Urine Protein Urine Ketones Urine Blood Urine Nitrate Urine Bilirubin Urine Urobilinogen Ur Leukocyte Esterase Urine WBC (Auto) Urine RBC (Auto) Urine Bacteria Urine Glucose Vancomycin Trough Hepatitis C Antibody Nonreactive HIV 1&2 Antibody Nonreactive Influenza A (Rapid) Influenza B (Rapid) 05/01/17 05/01/1717 16:58 20:49 21:30 WBC RBC Hgb Hct MCV MCH MCHC RDW Plt Count MPV Neut % (Auto) Lymph % (Auto) [place] % (Auto) Eos % (Auto) Baso % (Auto) Absolute Neuts (auto) Absolute Lymphs (auto) Absolute Monos (auto) Absolute Eos (auto) Absolute Basos (auto) Absolute Nucleated RBC Nucleated RBC % INR (Anticoag Therapy) APTT Fibrinogen D-Dimer, Quantitative Sodium Potassium Chloride Carbon Dioxide Anion Gap BUN Creatinine Est GFR ( Amer) Est GFR (Non-Af Amer) BUN/Creatinine Ratio Glucose Lactic Acid 1.6 Calcium Total Bilirubin AST ALT Alkaline Phosphatase Lactate Dehydrogenase Troponin I C-Reactive Protein Total Protein Albumin Globulin Albumin/Globulin Ratio Urine Color Yellow Urine Appearance Clear Urine pH 6.0 Ur Specific [place] 1.039 H Urine Protein Negative Urine Ketones Negative Urine Blood 1+ H Urine Nitrate Negative Urine Bilirubin Negative Urine Urobilinogen Negative Ur Leukocyte Esterase Negative Urine WBC (Auto) Trace(0-5/hpf) Urine RBC (Auto) Trace(0-2/hpf) Urine Bacteria Absent Urine Glucose Negative Vancomycin Trough Hepatitis C Antibody HIV 1&2 Antibody Influenza A (Rapid) Negative Influenza B (Rapid) Negative 05/02/17 05/02/17 05/02/17 04:57 04:57 14:07 WBC 26.0 H RBC 4.02 Hgb 11.2 L Hct 34 L MCV 84 MCH 28 MCHC 33 RDW 14 Plt Count 310 MPV 7 L Neut % (Auto) 90.8 H Lymph % (Auto) 4.3 L [place] % (Auto) 4.6 Eos % (Auto) 0 Baso % (Auto) 0.3 Absolute Neuts (auto) 23.7 H Absolute Lymphs (auto) 1.1 Absolute Monos (auto) 1.2 H Absolute Eos (auto) 0 Absolute Basos (auto) 0.1 Absolute Nucleated RBC 0 Nucleated RBC % 0 INR (Anticoag Therapy) APTT Fibrinogen D-Dimer, Quantitative Sodium 136 Potassium 4.4 Chloride 109 Carbon Dioxide 20 L Anion Gap 7 BUN 14 Creatinine 0.66 L Est GFR ( Amer) 192.4 Est GFR (Non-Af Amer) 149.6 BUN/Creatinine Ratio 21.2 H Glucose 173 H Lactic Acid Calcium 8.4 L Total Bilirubin AST ALT Alkaline Phosphatase Lactate Dehydrogenase Troponin I C-Reactive Protein Total Protein Albumin Globulin Albumin/Globulin Ratio Urine Color Urine Appearance Urine pH Ur Specific [place] Urine Protein Urine Ketones Urine Blood Urine Nitrate Urine Bilirubin Urine Urobilinogen Ur Leukocyte Esterase Urine WBC (Auto) Urine RBC (Auto) Urine Bacteria Urine Glucose Vancomycin Trough 14.0 Hepatitis C Antibody HIV 1&2 Antibody Influenza A (Rapid) Influenza B (Rapid) Microbiology and Other Data: Microbiology 05/01/17 16:58 Sputum Gram Stain - Final 05/01/17 16:58 Sputum Sputum Culture - Preliminary Haemophilus Influenzae 05/01/17 21:30 Urine Legionella Urinary Antigen - Final Negative Legionella 05/01/17 21:30 Urine Streptococcus pneumoniae Ag Screen - Final Negative S. pneumo Antigen 05/01/17 16:58 Nasal Influenza Types A,B Antigen (TINY) - Final Specimen received for Influenza A/B Molecular testing Assess/Plan/Problems-Billing Assessment: 21 yo male PMH heroin IVDA last 8 weeks ago p/w sebsis L>R pna (HFlu positive, CTA concerning for septic emboli), improving on cefepime, vanc. Bcx pending. Pleuritic chest pain - Patient Problems (1) Sepsis Current Visit: Yes Status: Acute Comment: SIRS 4/4: Initially very tachycardic, leukocytosis, fevers, tachypneic. All improving trend on vanc, cefepime. Continue until BCx back Concern about septic emboli on CTA. f/u Bcx Hflu on sputum. f/u MRSA swab (2) Pneumonia Current Visit: Yes Status: Acute Code(s): J18.9 - PNEUMONIA, UNSPECIFIED ORGANISM SNOMED Code(s): 042270479 Comment: plan as above (3) History of heroin abuse Current Visit: Yes Status: Acute Code(s): Z87.898 - PERSONAL HISTORY OF OTHER SPECIFIED CONDITIONS SNOMED Code(s): 782103251 Comment: avoid IV opioids if possible. (4) Pleuritic chest pain Current Visit: Yes Status: Acute Comment: likely 2/2 pneumonia trial of tylenol and toradol and nebs. morphine if absolutely necessary (5) Bronchospasm Current Visit: Yes Status: Acute Code(s): J98.01 - ACUTE BRONCHOSPASM SNOMED Code(s): 9937017 Comment: duonebs q2 prn s/p solumedrol 60mg in ED Status and Disposition: medicine inpatient. Attending: Marino Nice
[2017-05-02] MEDS: Ketorolac TAB * 10 MG TAB PO PRN (15:33)
[2017-05-02] MEDS: Acetaminophen TAB* 325 MG PO PRN (17:56)
[2017-05-02] MEDS: Nicotine PATCH 21 MG/24 HR* PATCH TRANSDERM SCH (19:13)
[2017-05-02] MEDS: predniSONE TAB* 20 MG PO SCH (19:13)
[2017-05-02] MEDS: NS 0.9% 1000 ML* 1,000 ML IV SCH (19:42)
[2017-05-02] MEDS: Nicotine Patch Removal NOTE FOLLOW UP SCH (21:40)
[2017-05-02] MEDS: HYDROmorphone TAB* 2 MG PO PRN (22:24)
[2017-05-03] MEDS: LORazepam TAB(*) 0.5 MG PO PRN ×2 (01:02→23:45)
[2017-05-03] MEDS: Cefepime 2 GM in Dextrose(*) 2 GM/50 ML BAG IV SCH (02:03)
[2017-05-03] MEDS: NS 0.9% 1000 ML* 1,000 ML IV SCH ×2 (04:45→21:08)
[2017-05-03] MEDS: Ketorolac TAB * 10 MG TAB PO PRN ×2 (05:41→18:48)
[2017-05-03 06:02] LABS: Hematocrit 34 % (42-52); Hemoglobin 11.5 g/dl (14.0-18.0); Mean Corpuscular HGB Conc 34 g/dl (31-36); Mean Corpuscular Hemoglobin 28 pg (27-31); Mean Corpuscular Volume 84 fL (80-94); Mean Platelet Volume 7 um3 (7.4-10.4); Red Blood Count 4.07 10^6/ul (4.0-5.4); Red Cell Distribution Width 14 % (10.5-15); White Blood Count 20.3 10^3/ul (3.5-10.8)
[2017-05-03 06:06] LABS: Add Diff/Slide Review? Slide Review Added; Comments Flag Yes
[2017-05-03 06:23] LABS: Calcium 8.4 mg/dL (8.6-10.3); EGFR African American 208.9 (>60); EGFR Non-African American 162.4 (>60); Potassium 3.9 mmol/L (3.5-5.0)
[2017-05-03] MEDS: cefTRIAXone VIAL(*) 1,000 MG in NS 0.9% 50 ML* 50 ML IVPB SCH (09:45)
[2017-05-03] MEDS: predniSONE TAB* 20 MG PO SCH (09:45)
[2017-05-03] MEDS: Nicotine GUM* 2 MG PO PRN (09:45)
[2017-05-03] MEDS: Nicotine PATCH 21 MG/24 HR* PATCH TRANSDERM SCH (09:45)
--- NOTE | 2017-05-03 13:07 | PN ---
Subjective Date of Service: 05/03/17 Interval History: Pt was SOB last night with pleuritic pain and again this AM but medications helped. afebrile, leukocytosis, tachycardia and tachypnea improving. Blood cultures negative. Overall feels improved. Objective Active Medications: Acetaminophen (Tylenol Tab*) 650 mg PO Q6H PRN PRN Reason: FEVER/PAIN Last Admin: 05/02/17 17:56 Dose: 650 mg Albuterol/Ipratropium (Duoneb (Albuterol 2.5 Mg/Ipratropium 0.5 Mg)) 1 neb INH Q2H PRN PRN Reason: SOB/WHEEZING Last Admin: 05/02/17 15:04 Dose: 1 neb Hydromorphone HCl (Dilaudid Tab*) 2 mg PO Q4H PRN PRN Reason: PAIN Last Admin: 05/02/17 22:24 Dose: 2 mg Sodium Chloride (Ns 0.9% 1000 Ml*) 1,000 mls @ 125 mls/hr IV PER RATE [facility] Last Admin: 05/03/17 04:45 Dose: 125 mls/hr Ceftriaxone Sodium 1,000 mg/ (Sodium Chloride) 50 mls @ 200 mls/hr IVPB Q24H [facility] Last Admin: 05/03/17 09:45 Dose: 200 mls/hr Ketorolac Tromethamine (Toradol Tab *) 10 mg PO Q6H PRN PRN Reason: PAIN Stop: 05/07/17 14:36 Last Admin: 05/03/17 05:41 Dose: 10 mg Lorazepam (Ativan Tab(*)) 0.5 mg PO Q4H PRN PRN Reason: ANXIETY Last Admin: 05/03/17 01:02 Dose: 0.5 mg Nicotine (Nicotine Patch 21 Mg/24 Hr*) 1 patch TRANSDERM DAILY@0800 [facility] Last Admin: 05/03/17 09:45 Dose: 1 patch Nicotine Polacrilex (Nicotine Gum*) 2 mg PO Q2H PRN PRN Reason: CRAVING Last Admin: 05/03/17 09:45 Dose: 2 mg Pharmacy Profile Note (Nicotine Patch Removal Note*) 1 note FOLLOW UP 2100 [facility] Last Admin: 05/02/17 21:40 Dose: 1 note Prednisone (Deltasone Tab*) 40 mg PO DAILY [facility] Last Admin: 05/03/17 09:45 Dose: 40 mg Vital Signs 05/02/17 05/02/17 05/02/17 13:45 14:23 15:05 Temperature 98.8 F Pulse Rate 87 80 Respiratory 32 16 Rate Blood Pressure 112/67 (mmHg) O2 Sat by Pulse 95 Oximetry 05/02/17 05/02/17 05/02/17 15:49 15:50 16:14 Temperature 99.1 F Pulse Rate 88 Respiratory 20 20 32 Rate Blood Pressure 107/50 (mmHg) O2 Sat by Pulse 94 Oximetry 05/02/17 05/02/17 05/02/17 17:57 18:10 19:29 Temperature 98.4 F 98.5 F Pulse Rate 108 84 Respiratory 40 40 16 Rate Blood Pressure 125/68 114/69 (mmHg) O2 Sat by Pulse 98 97 Oximetry 05/02/17 05/02/17 05/02/17 19:58 20:00 22:24 Temperature Pulse Rate Respiratory 16 16 20 Rate Blood Pressure (mmHg) O2 Sat by Pulse 97 Oximetry 05/02/17 05/03/17 05/03/17 23:25 01:02 01:53 Temperature 98.8 F Pulse Rate 94 Respiratory 16 18 18 Rate Blood Pressure 138/86 (mmHg) O2 Sat by Pulse 98 Oximetry 05/03/17 05/03/17 05/03/17 03:24 04:28 07:29 Temperature 99.4 F 99.4 F Pulse Rate 68 87 Respiratory 16 16 18 Rate Blood Pressure 123/60 127/69 (mmHg) O2 Sat by Pulse 98 97 Oximetry 05/03/17 05/03/17 08:00 11:03 Temperature 98.9 F Pulse Rate 112 Respiratory 18 18 Rate Blood Pressure 135/68 (mmHg) O2 Sat by Pulse 98 98 Oximetry Oxygen Devices in Use Now: None Appearance: NAD, eating breakfast Eyes: No Scleral Icterus, PERRLA Neck: NL Appearance and Movements; NL JVP Respiratory: - - CTAB without rhonchi, rales. better air exhange b/l Cardiovascular: NL Sounds; No Murmurs; No JVD, RRR Abdominal: NL Sounds; No Tenderness; No Distention, No Hepatosplenomegaly Extremities: No Edema, No Clubbing, Cyanosis Skin: No Rash or Ulcers Neurological: Alert and Oriented x 3, NL Sensation, NL Muscle Strength and Tone Nutrition: Taking PO's Result Diagrams: 05/03/17 05:29 05/03/17 05:29 Additional Lab and Data: Laboratory Results - last 24 hr 05/01/17 05/02/17 05/03/17 16:58 14:07 05:29 WBC 20.3 H RBC 4.07 Hgb 11.5 L Hct 34 L MCV 84 MCH 28 MCHC 34 RDW 14 Plt Count 362 MPV 7 L Neut % (Auto) 83.8 H Lymph % (Auto) 8.5 L [place] % (Auto) 7.4 Eos % (Auto) 0.1 Baso % (Auto) 0.2 Absolute Neuts (auto) 17.0 H Absolute Lymphs (auto) 1.7 Absolute Monos (auto) 1.5 H Absolute Eos (auto) 0 Absolute Basos (auto) 0 Absolute Nucleated RBC 0 Nucleated RBC % 0 Sodium Potassium Chloride Carbon Dioxide Anion Gap BUN Creatinine Est GFR ( Amer) Est GFR (Non-Af Amer) BUN/Creatinine Ratio Glucose Calcium Vancomycin Trough 14.0 HIV 1&2 Antibody Nonreactive 05/03/17 05:29 WBC RBC Hgb Hct MCV MCH MCHC RDW Plt Count MPV Neut % (Auto) Lymph % (Auto) [place] % (Auto) Eos % (Auto) Baso % (Auto) Absolute Neuts (auto) Absolute Lymphs (auto) Absolute Monos (auto) Absolute Eos (auto) Absolute Basos (auto) Absolute Nucleated RBC Nucleated RBC % Sodium 137 Potassium 3.9 Chloride 109 Carbon Dioxide 20 L Anion Gap 8 BUN 14 Creatinine 0.61 L Est GFR ( Amer) 208.9 Est GFR (Non-Af Amer) 162.4 BUN/Creatinine Ratio 23.0 H Glucose 130 H Calcium 8.4 L Vancomycin Trough HIV 1&2 Antibody Microbiology and Other Data: Microbiology 05/01/17 16:58 Sputum Gram Stain - Final 05/01/17 16:58 Sputum Sputum Culture - Preliminary Haemophilus Influenzae Normal [place] 05/02/17 15:45 Nasal Nasal Screen MRSA (PCR)(TINY) - Final Mrsa Negative 05/01/17 16:58 Blood Venous Aerobic Blood Culture - Preliminary No Growth Day 1 05/01/17 16:58 Blood Venous Anaerobic Blood Culture - Preliminary No Growth Day 1 05/01/17 16:47 Blood Venous Aerobic Blood Culture - Preliminary No Growth Day 1 05/01/17 16:47 Blood Venous Anaerobic Blood Culture - Preliminary No Growth Day 1 05/01/17 21:30 Urine Legionella Urinary Antigen - Final Negative Legionella 05/01/17 21:30 Urine Streptococcus pneumoniae Ag Screen - Final Negative S. pneumo Antigen 05/01/17 16:58 Nasal Influenza Types A,B Antigen (TINY) - Final Specimen received for Influenza A/B Molecular testing Assess/Plan/Problems-Billing Assessment: 21 yo male PMH heroin IVDA last 8 weeks ago, anxiety, ?asthma p/w sepsis L>R pna (H.Influenza positive, CTA concerning for septic emboli), improving. Cefepime, vanc -> now ceftriaxone. Bcx NGTD. Pleuritic chest pain - Patient Problems (1) Sepsis Current Visit: Yes Status: Acute Comment: SIRS 4/4: Initially very tachycardic, leukocytosis, fevers, tachypneic. All improving trend. s/p vanc, cefepime.BCx NGTD; Hflu on sputum. will narrow to ceftriaxone Concern about septic emboli on CTA. MRSA PCR negative (2) Pneumonia Current Visit: Yes Status: Acute Code(s): J18.9 - PNEUMONIA, UNSPECIFIED ORGANISM SNOMED Code(s): 943328900 Comment: plan as above (3) History of heroin abuse Current Visit: Yes Status: Acute Code(s): Z87.898 - PERSONAL HISTORY OF OTHER SPECIFIED CONDITIONS SNOMED Code(s): 073893326 Comment: avoid IV opioids if possible. HIV and Hep C negative. (4) Pleuritic chest pain Current Visit: Yes Status: Acute Comment: likely 2/2 pneumonia trial of tylenol and toradol and nebs. po dilaudid 2mg q4 prn if absolutely necessary (5) Bronchospasm Current Visit: Yes Status: Acute Code(s): J98.01 - ACUTE BRONCHOSPASM SNOMED Code(s): 5060912 Comment: duonebs q2 prn s/p solumedrol 60mg in ED prednisone 40mg daily, planned taper. current smoker, on nicotine replacement Status and Disposition: medicine inpatient. Possible d/c 05/04 Attending: Marino Nice
[2017-05-03] MEDS: HYDROmorphone TAB* 2 MG PO PRN ×2 (15:29→23:44)
[2017-05-03] MEDS: Acetaminophen TAB* 325 MG PO PRN (18:46)
[2017-05-03] MEDS: Nicotine Patch Removal NOTE FOLLOW UP SCH (22:00)
[2017-05-04] MEDS: NS 0.9% 1000 ML* 1,000 ML IV SCH (05:44)
[2017-05-04] MEDS: LORazepam TAB(*) 0.5 MG PO PRN (06:08)
[2017-05-04] MEDS: HYDROmorphone TAB* 2 MG PO PRN (06:09)
[2017-05-04 06:21] LABS: Hematocrit 36 % (42-52); Hemoglobin 11.8 g/dl (14.0-18.0); Mean Corpuscular HGB Conc 33 g/dl (31-36); Mean Corpuscular Hemoglobin 27 pg (27-31); Mean Corpuscular Volume 84 fL (80-94); Mean Platelet Volume 7 um3 (7.4-10.4); Red Cell Distribution Width 14 % (10.5-15); White Blood Count 13.9 10^3/ul (3.5-10.8)
[2017-05-04 06:22] LABS: Add Diff/Slide Review? Slide Review Added; Comments Flag Yes
[2017-05-04 06:39] LABS: Calcium 8.4 mg/dL (8.6-10.3); EGFR African American 208.9 (>60); EGFR Non-African American 162.4 (>60); Potassium 3.8 mmol/L (3.5-5.0)
[2017-05-04] MEDS: cefTRIAXone VIAL(*) 1,000 MG in NS 0.9% 50 ML* 50 ML IVPB SCH (09:14)
[2017-05-04] MEDS: predniSONE TAB* 20 MG PO SCH (09:14)
[2017-05-04 09:17] VITALS: BP 117/67
[2017-05-04] MEDS: Nicotine PATCH 21 MG/24 HR* PATCH TRANSDERM SCH (10:30)
--- NOTE | 2017-05-05 10:43 | DS ---
CC: Dr. Pepito Terrazas * DISCHARGE SUMMARY: DATE OF ADMISSION: 05/01/17 DATE OF DISCHARGE: 05/04/17 ADMISSION DIAGNOSES: 1. Sepsis. 2. Pneumonia. 3. History of heroin abuse. 4. Pleuritic chest pain. DISCHARGE DIAGNOSES: 1. Sepsis. 2. Pneumonia. 3. History of heroin abuse. 4. Pleuritic chest pain. HOSPITAL COURSE: The patient is a 22-year-old gentleman who presented [facility] with the chief complaint of achiness, general malaise, and productive cough. Please see H and P for further details. The patient was diagnosed with sepsis secondary to pneumonia. The patient's sputum culture came back positive for Haemophilus influenzae. The patient was placed on Rocephin. The patient's symptoms virtually resolved. The patient was very anxious to leave on the date of discharge. His initial admission, white count was 21.4, when he was discharged it was 13.9. The patient was afebrile on discharge. He was feeling well with no complaints. The patient was encouraged to follow with his PCP. PHYSICAL EXAMINATION: On the day of discharge, a thin gentleman was sitting up in bed, in no acute distress. Vital Signs: Temperature 99.4 degrees, heart rate 77 beats per minute, respiratory rate 18 breaths per minute, pulse ox 96%, blood pressure 117/67. HEENT: Normocephalic and atraumatic. Pupils are equal , round and reactive to light. Moist mucous membranes. Neck: Supple. No JVD , bruits, palpable thyroid, or lymphadenopathy. Chest: Clear to auscultation. Cardiovascular Exam: S1, S2 appreciated. Abdominal Exam: Positive bowel sounds in all 4 quadrants. Soft, nontender, and nondistended. Extremities: No cyanosis or clubbing, or edema. Neuro: Alert and oriented x3. Moves all extremities. STUDIES DONE WHILE IN THE HOSPITAL: Chest x-ray 05/01/17, impression: Interval worsening in density and distribution of patchy infiltration consistent with worsening bronchopneumonia. CTA of the chest 05/01/17, impression: No CT evidence of pulmonary embolism. They are multifocal infiltrates involving all lobes which have the diffuse ____ _ consistent with septic emboli. Transthoracic echocardiogram 05/01/17, impression: Left ventricular chamber size, wall thicknesses, and systolic function within normal limits. No wall motion abnormalities. Ejection fraction is 55% to 60%. Right ventricular chamber size and systolic function within normal limits. No vegetation seen on any valve, valves seen with good image quality. Aortic valve is trileaflet with normal function. Mild mitral regurg, mild tricuspid regurg, mild pulmonic regurg. PA pressure is mildly increased at 37 mmHg. Compared with prior echo of 01/29/15, MR previously trace, tricuspid regurg new, pulmonic regurg is stable. PA pressure was not previously estimated. There is evidence of mild pulmonary hypertension. DISCHARGE MEDICATIONS: 1. Prednisone 40 mg x3 days, 20 mg x2 days, 10 mg x2 days, then off. 2. Amoxicillin 875 mg twice a day for the next 10 days. DISCHARGE PLAN: The patient was discharged home. He is instructed to follow with PCP within 1 week. Patient to return to the ED if symptoms recur. It was thought unlikely that the patient had endocarditis. His blood cultures have been negative for the last few days. We have a cause for his Haemophilus influenzae and his echo was fairly clean. The patient should return to the ED if symptoms recur. TIME SPENT: Over 45 minutes was spent on this discharge; more than 25 minutes of which was spent in direct [id number] contact with the patient in evaluation , physical exam, counseling, and coordination of care. [id number]/[facility] #: [id number] FREDERICK
== END 2017-05-04 13:00 | disposition home or self-care (01) | DRG 720 ==
LOC: ED 15:28 → MEDTELE 18:38
PROVIDERS: ADMIT Internal Medicine; ATTEND Internal Medicine
DX: A41.9 Sepsis, unspecified organism (principal); J18.0 Bronchopneumonia, unspecified organism; I76 Septic arterial embolism; I27.20 Pulmonary hypertension, unspecified; R40.2412 Glasgow coma scale score 13-15, at arrival to emergency department; J98.01 Acute bronchospasm; R07.89 Other chest pain; B96.3 Hemophilus influenzae [H. influenzae] as the cause of diseases classified elsewhere; I08.1 Rheumatic disorders of both mitral and tricuspid valves; F12.20 Cannabis dependence, uncomplicated; Z82.49 Family history of ischemic heart disease and other diseases of the circulatory system; Z72.89 Other problems related to lifestyle; Z80.6 Family history of leukemia; Z56.0 Unemployment, unspecified; Z81.1 Family history of alcohol abuse and dependence; F17.290 Nicotine dependence, other tobacco product, uncomplicated
CPT/HCPCS: 36415; 71020; 71275; 80048; 80053; 80202; 81003; 81015; 83605; 83615; 84484; 85025; 85379; 85384; 85610; 85730; 86140; 86703; 86803; 87040; 87070; 87077; 87185; 87205; 87502; 87641; 87899; 90686; 90732; 93005; 93306; 94640; 94760; 99406; A9270-GY; J0692; J0696; J1170; J2920; J3370; J7512; J7644; Q9967

== ENCOUNTER 2017-06-22 19:38 | Emergency (ER) | payer OTHER ==
[2017-06-22] MEDS ORDERED: Naloxone Nasal Spray* 4 MG/0.1 ML NASAL.SPR NASAL ONE (20:05)
[2017-06-22] MEDS ORDERED: Naloxone* 0.4 MG/ML 1 ML VIAL IV PUSH ONE (20:07)
--- NOTE | 2017-06-22 20:23 | RAD ---
INDICATION: Drug overdose COMPARISON: None TECHNIQUE: An AP portable view obtained at 2009 hours is submitted. FINDINGS: Bones/Soft Tissues: There are no acute bony findings. Cardiomediastinal: The cardiomediastinal silhouette is normal. Lungs: There are no infiltrates. Pleura: There are no pleural effusions. Other: None IMPRESSION: NO ACTIVE DISEASE.
[2017-06-22 20:49] VITALS: BP 116/80
--- NOTE | 2017-06-23 20:36 | ED ---
Joanie Rosenberg Emily, scribed for Milind Stone MD on 06/22/17 at 1958 . Substance Abuse/Use - HPI Summary HPI Summary: This patient is a 22 year old M [place] [facility] [place] [place] with a chief complaint of heroin overdose. Pt arrived unconscious in friends vehicle. Pt reports taking heroine, he is unsure of the amount taken. Pt denies taking fentanyl. Pt reports being a heroine user and stopping for several months. He reports today being the first time hes injected heroine since then. Medications reviewed. Allergies reviewed. Symptoms aggravated by nothing. Symptoms alleviated by nothing. Patient denies any injuries, SI, and HI. - History Of Current Complaint Stated Complaint: UNRESPONSIVE Time Seen by Provider: 06/22/17 19:46 Hx Obtained From: Patient Onset/Duration of Drug/ETOH Abuse: Years Ingestion History: Type/Name Of Drug - Heroin Overdose Characteristics: IV Timing Of Abuse: Recent Cessation For A Period Of - 3 months Aggravating Factor(s): Nothing Alleviating Factor(s): Nothing Associated Signs And Symptoms: Other: - Negative injuries, SI, and HI - Allergies/Home Medications Allergies/Adverse Reactions: Allergies Allergy/AdvReac Type Severity Reaction Status Date / Time No Known Allergies Allergy Verified 05/01/17 15:36 PMH/Surg Hx/FS Hx/Imm Hx Previously Healthy: No Endocrine/Hematology History: Denies: Hx Anticoagulant Therapy, Hx Blood Disorders, Hx Diabetes, Hx Thyroid Disease Cardiovascular History: Denies: Hx Hypertension, Hx Pacemaker/ICD, Hx Peripheral Vascular Disease Comment Only: Other Cardiovascular Problems/Disorders - pericarditis Respiratory History: Reports: Hx Chronic Bronchitis Denies: Hx Asthma - no dx but thinks he may have this, Hx Chronic Obstructive Pulmonary Disease (COPD) GI History: Denies: Hx Ulcer Musculoskeletal History: Denies: Hx Arthritis, Hx Osteoporosis Sensory History: Denies: Hx Contacts or Glasses, Hx Hearing Aid Opthamlomology History: Denies: Hx Contacts or Glasses Psychiatric History: Reports: Hx Anxiety, Hx Depression, Hx Substance Abuse, Other Psychiatric Issues/Disorders - manipulative behavior, has stated suicide intent w/o meaning it; grief rxn Denies: Hx Eating Disorder, Hx Panic Disorder, Hx of Violent Episodes Against Others - Surgical History Surgery Procedure, Year, and Place: none - Immunization History Date of Tetanus Vaccine: utd Date of Influenza Vaccine: none Infectious Disease History: Denies: Hx Clostridium Difficile, Hx Hepatitis, Hx Human Immunodeficiency Virus (HIV), Hx of Known/Suspected MRSA, Hx Shingles, Hx Tuberculosis, Hx Known/ Suspected VRE, Hx Known/Suspected VRSA, History Other Infectious Disease, Traveled Outside the [place] in Last 30 Days - Family History Known Family History: Positive: Cardiac Disease - CAD and [place] <55, Other - Mother w/ unspecified MH problems, of accidental - Social History Lives: Alone Alcohol Use: None Hx Substance Use: Yes Substance Use Type: Reports: Heroin - states last used a few weeks ago, Marijuana, Other - IV drugs Substance Use Comment - Amount & Last Used: weekly Hx Tobacco Use: Yes Smoking Status (MU): Current Every Day Smoker Type: eCigarettes Amount Used/How Often: 1 ppd Length of Time of Smoking/Using Tobacco: 5 years Have You Smoked in the Last Year: Yes Review of Systems Constitutional: Other - Negative injury Positive: Syncope Positive: Other - Negative HI and SI All Other Systems Reviewed And Are Negative: Yes Physical Exam - Summary Physical Exam Summary: Appearance: Well-appearing, Well-nourished Skin: Warm, Dry, No rash. Bruise and abrasion near right eye, both appear to be clean. Track huber primarily on the antecubital fossa bilaterally Eyes: PERRL, EOMI, sclera anicteric, pupils 6 mm and reactive ENT: Normal Neck: Supple, nontender Respiratory: Clear to auscultation Cardiovascular: S1, S2, no murmur, no rub, no gallop Abdomen: Soft, nontender, no organomegaly Bowel sounds: Present Musculoskeletal: Normal, Strength/ROM Intact, no edema, pulses symmetrical Neurological: Normal, A&Ox3, cranial nerves II-XII WNL, follows commands, gait not tested, sensation intact to pin and light touch Psychiatric: affect normal, behavior appropriate, dressed appropriately, judgment intact Triage Information Reviewed: Yes Vital Signs Reviewed: Yes Diagnostics - Laboratory Lab Statement: Any lab studies that have been ordered have been reviewed, and results considered in the medical decision making process. - Radiology CXR Xray Interpretation: No Acute Changes Radiology Interpretation Completed By: ED Physician Course/Dx - Course Assessment/Plan: This patient is a 22 year old M presenting to [facility] accompanied by friends with a chief complaint of heroin overdose. Pt arrived unconscious in friends vehicle. Pt reports taking heroine, he is unsure of the amount taken. Pt denies taking fentanyl. Pt reports being a heroine user and stopping for several months. He reports today being the first time hes injected heroine since then. Physical Exam Findings. Track huber primarily on the antecubital fossa bilaterally. Bruise and abrasion near the right, both appear to be clean. Pupils are 6 mm and reactive. CXR reveals, per ED physician , no acute disease. Bloodwork obtained. Patient will be discharged with prescription for Narcan nasal spray and with follow up from PCP. The patient is agreeable with this plan. - Diagnoses Provider Diagnoses: Heroin overdose Discharge - Discharge Plan Condition: Good Disposition: HOME Prescriptions: Naloxone Nasal [place]* [Narcan Nasal [place]] 4 mg NASAL ONCE 2 Days #2 nasal.spr Patient Education Materials: Narcotic Abuse (ED) Referrals: Pepito Terrazas DO [Primary Care Provider] - The documentation as recorded by the Joanie collins Emily accurately reflects the service I personally performed and the decisions made by me, Milind Stone MD.
== END 2017-06-22 21:00 | disposition home or self-care (01) ==
LOC: ED 19:38
DX: T40.1X1A Poisoning by heroin, accidental (unintentional), initial encounter (principal); R55 Syncope and collapse; Y92.9 Unspecified place or not applicable; F17.210 Nicotine dependence, cigarettes, uncomplicated
CPT/HCPCS: 71045; 99284

== ENCOUNTER → 2017-12-22 20:55 | Emergency (ER) | payer MEDICAID ==
[2017-12-22 21:15] VITALS: BP 133/76
--- NOTE | 2017-12-22 21:50 | RAD ---
INDICATION: LEFT side chest pain for 2 hours. Previous pericarditis. COMPARISON: June 22, 2017 chest radiograph and May 01, 2017 CT. TECHNIQUE: Dual energy PA and routine lateral views of the chest were obtained. REPORT: Clear lungs and pleural spaces. Negative for pneumothorax. The heart, pulmonary vasculature, and mediastinal contours are unremarkable. Negative for free air beneath the diaphragm. Unremarkable osseous structures and soft tissue contours. IMPRESSION: #. No evidence for acute intrathoracic disease.
== END | disposition left against medical advice (07) ==
LOC: ED 20:55
DX: R07.89 Other chest pain (principal); Z53.21 Procedure and treatment not carried out due to patient leaving prior to being seen by health care provider
CPT/HCPCS: 71046; 93005; 99282

== ENCOUNTER 2018-01-02 19:02 | Emergency (ER) | payer MEDICAID ==
[2018-01-02 20:22] LABS: ABS Basophils 0.1 10^3/ul (0-0.2); ABS Eosinophils 0.1 10^3/ul (0-0.6); ABS Lymphocytes 3.4 10^3/ul (1.0-4.8); ABS Monocytes 0.8 10^3/ul (0-0.8); ABS Neutrophils 4.8 10^3/ul (1.5-7.7); ABS Nucleated RBC 0 10^3/ul; Eosinophil % 0.7 % (0-6); Hematocrit 43 % (42-52); Hemoglobin 14.6 g/dl (14.0-18.0); Lymphocyte % 37.1 % (25-47); Mean Corpuscular HGB Conc 34 g/dl (31-36); Mean Corpuscular Hemoglobin 29 pg (27-31); Mean Corpuscular Volume 86 fL (80-94); Mean Platelet Volume 7.6 um3 (7.4-10.4); Nucleated Red Blood Cells % 0.1; Platelet Count 360 10^3/ul (150-450); Red Blood Count 5.02 10^6/ul (4.00-5.40); Red Cell Distribution Width 14 % (10.5-15); White Blood Count 9.1 10^3/ul (3.5-10.8)
--- NOTE | 2018-01-02 20:23 | ED ---
HPI Chest Pain - HPI Summary HPI Summary: This is scribe [place] documenting for attending Dr. Nelda Lopez MD. A 22 y/o male BIBP presents to ED c/o throbbing chest pain. In the ED room, the patient has a pulse of 63 BPM, O2 saturation of 98% and blood pressure of 133/ 70. According to the patient, he has been experiencing throbbing chest pain for the past 1.5 hours. He stated that the pain does not hurt during movement or when he breathes. Additional symptoms include tingling/numbness in his hands, however, denies SOB. It was noted by an present officer in the ED room that the patient was recently in custody (3 hours). Pt is currently and has been for the past 2 weeks on Doxycycline for his lungs. Pt indicated in the ED room that he would like Ibuprofen for his pain. - History of Current Complaint Chief Complaint: EDChestPainROMI Time Seen by Provider: 01/02/18 20:19 Hx Obtained From: Patient Onset/Duration: Started Hours Ago, Still Present Timing: Constant Initial Severity: Severe Current Severity: Severe Pain Intensity: 9 Pain Scale Used: 0-10 Numeric Chest Pain Radiates: No Character: Other: - THROBBING Aggravating Factor(s): Nothing Alleviating Factor(s): Nothing Associated Signs and Symptoms: Positive: Chest Pain, Numbness - Hands, Tingling - Hands. Negative: Shortness of Breath, Fever - Additional Pertinent History Primary Care Physician: ERIC - Allergy/Home Medications Allergies/Adverse Reactions: Allergies Allergy/AdvReac Type Severity Reaction Status Date / Time No Known Allergies Allergy Verified 12/22/17 21:10 PMH/Surg Hx/FS Hx/Imm Hx Endocrine/Hematology History: Denies: Hx Anticoagulant Therapy, Hx Blood Disorders, Hx Diabetes, Hx Thyroid Disease Cardiovascular History: Denies: Hx Hypertension, Hx Pacemaker/ICD, Hx Peripheral Vascular Disease Comment Only: Other Cardiovascular Problems/Disorders - pericarditis Respiratory History: Reports: Hx Chronic Bronchitis Denies: Hx Asthma - no dx but thinks he may have this, Hx Chronic Obstructive Pulmonary Disease (COPD) GI History: Denies: Hx Ulcer Musculoskeletal History: Denies: Hx Arthritis, Hx Osteoporosis Sensory History: Denies: Hx Contacts or Glasses, Hx Hearing Aid Opthamlomology History: Denies: Hx Contacts or Glasses Psychiatric History: Reports: Hx Anxiety, Hx Depression, Hx Substance Abuse, Other Psychiatric Issues/Disorders - manipulative behavior, has stated suicide intent w/o meaning it; grief rxn Denies: Hx Eating Disorder, Hx Panic Disorder, Hx of Violent Episodes Against Others - Surgical History Surgery Procedure, Year, and Place: none - Immunization History Date of Tetanus Vaccine: utd Date of Influenza Vaccine: none Infectious Disease History: No Infectious Disease History: Denies: Hx Clostridium Difficile, Hx Hepatitis, Hx Human Immunodeficiency Virus (HIV), Hx of Known/Suspected MRSA, Hx Shingles, Hx Tuberculosis, Hx Known/ Suspected VRE, Hx Known/Suspected VRSA, History Other Infectious Disease, Traveled Outside the [place] in Last 30 Days - Family History Known Family History: Positive: Cardiac Disease - CAD and [place] <55, Other - Mother w/ unspecified MH problems, of accidental - Social History Alcohol Use: None Hx Substance Use: Yes Substance Use Type: Reports: Heroin - states last used a few weeks ago, Marijuana, Other - IV drugs Substance Use Comment - Amount & Last Used: weekly Hx Tobacco Use: Yes Smoking Status (MU): Current Every Day Smoker Type: eCigarettes Amount Used/How Often: 1 ppd Length of Time of Smoking/Using Tobacco: 5 years Have You Smoked in the Last Year: Yes Review of Systems Negative: Fever Positive: Chest Pain Negative: Shortness Of Breath Neurological: Other - POSITIVE: Numbness/Tingling in hands. All Other Systems Reviewed And Are Negative: Yes Physical Exam - Summary Physical Exam Summary: VITAL SIGNS: Reviewed. GENERAL: Patient is a well-developed and nourished male who is lying comfortable in the stretcher. Patient is not in any acute respiratory distress. HEAD AND FACE: No signs of trauma. No ecchymosis, hematomas or skull depressions. No sinus tenderness. EYES: PERRLA, EOMI x 2, No injected conjunctiva, no nystagmus. EARS: Hearing grossly intact. Ear canals and tympanic membranes are within normal limits. MOUTH: Oropharynx within normal limits. NECK: Supple, trachea is midline, no adenopathy, no JVD, no carotid bruit, no c- spine tenderness, neck with full ROM. CHEST: Symmetric, no tenderness at palpation LUNGS: Clear to auscultation bilaterally. No wheezing or crackles. CVS: Regular rate and rhythm, S1 and S2 present, no murmurs or gallops appreciated. ABDOMEN: Soft, non-tender. No signs of distention. No rebound no guarding, and no masses palpated. Bowel sounds are normal. EXTREMITIES: FROM in all major joints, no edema, no cyanosis or clubbing. NEURO: Alert and oriented x 3. No acute neurological deficits. Speech is normal and follows commands. SKIN: Dry and warm Triage Information Reviewed: Yes Vital Signs On Initial Exam: Initial Vitals Temp Pulse Resp BP Pulse Ox 98.2 F 70 16 0/0 98 01/02/18 19:06 01/02/18 19:06 01/02/18 19:06 01/02/18 19:06 01/02/18 19:06 Vital Signs Reviewed: Yes Diagnostics - Vital Signs Vital Signs Temp Pulse Resp BP Pulse Ox 01/02/18 19:13 98.2 F 71 19 0/0 99 01/02/18 19:06 98.2 F 70 16 0/0 98 - Laboratory Result Diagrams: 01/02/18 20:10 01/02/18 20:10 Lab Statement: Any lab studies that have been ordered have been reviewed, and results considered in the medical decision making process. - Radiology CXR Radiology Interpretation Completed By: ED Physician - No acute process. Pending official report. - EKG 1914 Cardiac Rate: NL - 92 BPM EKG Rhythm: Sinus Rhythm EKG Interpretation: Normal axis. J-point elevation. Chest Pain Course/Dx - Course Course Of Treatment: A 22 y/o male BIBP presents to ED c/o throbbing chest pain. In the ED room, the patient has a pulse of 63 BPM, O2 saturation of 98% and blood pressure of 133/70. According to the patient, he has been experiencing throbbing chest pain for the past 1.5 hours. He stated that the pain does not hurt during movement or when he breathes. Additional symptoms include tingling/numbness in his hands, however, denies SOB. An EKG revealed a rate of 92 BPM, normal axis and J-point elevation. A CXR revealed no acute process. In the ED course, the patient recieved Ibuprofen. Patient will be discharged with a diagnosis of chest wall pain in police custody. Pt is agreeable with this plan. - Diagnoses Provider Diagnoses: Chest wall pain Discharge - Sign-Out/Discharge Documenting (check all that apply): Patient Departure - DISCHARGE IN CUSTODY OF POLICE - Discharge Plan Condition: Stable Disposition: HOME Patient Education Materials: Chest Pain (ED) Referrals: Pepito Terrazas DO [Primary Care Provider] - 2 Days (FOLLOW UP WITH PCP IN 1-2 DAYS.) Additional Instructions: RETURN TO ED FOR ANY NEW OR WORSENING SYMPTOMS.
[2018-01-02] MEDS ORDERED: Ibuprofen TAB* 800 MG PO ONE (20:32)
[2018-01-02 20:37] LABS: EGFR Non-African American 95.1 (>60)
[2018-01-02 22:15] VITALS: BP 118/56
--- NOTE | 2018-01-03 07:59 | RAD ---
INDICATION: Chest pain COMPARISON: December 22, 2017 TECHNIQUE: PA and lateral dual-energy views were obtained. FINDINGS: Bones/Soft Tissues: There are no acute bony findings. Cardiomediastinal: The cardiomediastinal silhouette is normal. Lungs: There are no infiltrates. Pleura: There are no pleural effusions. Other: None IMPRESSION: NORMAL CHEST.
== END 2018-01-02 22:17 | disposition home or self-care (01) ==
LOC: ED 19:02
DX: R07.89 Other chest pain (principal); F17.290 Nicotine dependence, other tobacco product, uncomplicated
CPT/HCPCS: 36415; 71046; 80053; 83605; 84484; 85025; 93005; 99283; A9270-GY

== ENCOUNTER 2019-03-09 00:33 | Emergency (ER) | payer MEDICAID, OTHER ==
[2019-03-09] MEDS ORDERED: Ondansetron INJ* 2 MG/ML VIAL IV ONE (00:48)
[2019-03-09] MEDS ORDERED: NS 0.9% 1000 ML** 1,000 ML IV ONE (00:51)
[2019-03-09] MEDS ORDERED: NS 0.9% 1000 ML** 1,000 ML IV.FLUID IV ONE (00:52)
--- NOTE | 2019-03-09 01:15 | ED ---
Substance Abuse/Use - HPI Summary HPI Summary: Pt is a 23 y/o M presenting to the ED via EMS after overdosing on heroin. Pt was at home with family members who believed the pt was high. Another person came to patient's house and noted that the patient had agonal breathing, was unconscious and unresponsive. EMS was subsequently called. Pt was given 2 doses of narcan by EMS after which he became awake and alert. Patient was brought under 2209 status to ED. It is reported that the family felt he was a danger to himself and the family did not know what to do if he falls unconscious again. Pt reports that he injected 0.5 grams of heroin intravenously, but now suspects it was laced with fentanyl. Pt has a history of heroin use and recently relapsed after being clean for a year. Pt admits nausea and vomiting. Pt denies headache or chest pain. The pt had used cocaine within the last 12 hours and uses tobacco. He denies alcohol usage. Pt denies any significant PMHx. Allergies are noted. - History Of Current Complaint Chief Complaint: EDOverdose Stated Complaint: 2209 PER POLICE Time Seen by Provider: 03/09/19 00:34 Hx Obtained From: Patient, EMS Ingestion History: Type/Name Of Drug - Heroin, pt suspects fentanyl, Amount Ingested - 0.5 grams Overdose Characteristics: IV Severity Initially: Severe Severity Currently: None Aggravating Factor(s): Nothing Alleviating Factor(s): Medication - 2 doses of Narcan Associated Signs And Symptoms: Nausea, Vomiting, Other: - Positive LOC and agonal breathing since resolved, negative chest pain or headache - Allergies/Home Medications Allergies/Adverse Reactions: Allergies Allergy/AdvReac Type Severity Reaction Status Date / Time No Known Allergies Allergy Verified 03/09/19 00:38 Home Medications: Home Medications NK [No Home Medications Reported] 03/09/19 [History Confirmed 03/09/19] PMH/Surg Hx/FS Hx/Imm Hx Previously Healthy: Yes Endocrine/Hematology History: Denies: Hx Anticoagulant Therapy, Hx Blood Disorders, Hx Diabetes, Hx Thyroid Disease Cardiovascular History: Denies: Hx Hypertension, Hx Pacemaker/ICD, Hx Peripheral Vascular Disease Comment Only: Other Cardiovascular Problems/Disorders - pericarditis Respiratory History: Reports: Hx Chronic Bronchitis Denies: Hx Asthma - no dx but thinks he may have this, Hx Chronic Obstructive Pulmonary Disease (COPD) GI History: Denies: Hx Ulcer Musculoskeletal History: Denies: Hx Arthritis, Hx Osteoporosis Sensory History: Denies: Hx Contacts or Glasses, Hx Hearing Aid Opthamlomology History: Denies: Hx Contacts or Glasses Psychiatric History: Reports: Hx Anxiety, Hx Depression, Hx Substance Abuse, Other Psychiatric Issues/Disorders - manipulative behavior, has stated suicide intent w/o meaning it; grief rxn Denies: Hx Eating Disorder, Hx Panic Disorder, Hx of Violent Episodes Against Others - Surgical History Surgery Procedure, Year, and Place: none - Immunization History Date of Tetanus Vaccine: utd Date of Influenza Vaccine: none Infectious Disease History: No Infectious Disease History: Denies: Hx Clostridium Difficile, Hx Hepatitis, Hx Human Immunodeficiency Virus (HIV), Hx of Known/Suspected MRSA, Hx Shingles, Hx Tuberculosis, Hx Known/ Suspected VRE, Hx Known/Suspected VRSA, History Other Infectious Disease, Traveled Outside the in Last 30 Days - Family History Known Family History: Positive: Cardiac Disease - CAD and [place] <55, Other - Mother w/ unspecified MH problems, of accidental - Social History Alcohol Use: None Hx Substance Use: Yes Substance Use Type: Reports: Cocaine, Heroin, Marijuana, Other Substance Use Comment - Amount & Last Used: weekly Hx Tobacco Use: Yes Smoking Status (MU): Current Every Day Smoker Type: eCigarettes Amount Used/How Often: 1 ppd Length of Time of Smoking/Using Tobacco: 5 years Have You Smoked in the Last Year: Yes Review of Systems Constitutional: Other - positive - substance usage Negative: Chest Pain Positive: Other - Agonal breathing Positive: Vomiting, Nausea Neurological: Other - Positive unresponsive and LOC, since resolved Negative: Headache All Other Systems Reviewed And Are Negative: Yes Physical Exam - Summary Physical Exam Summary: General: Well-developed, Thin Male. No acute distress. Mildly ill appearing. HEENT: Normocephalic, Atraumatic. Eyes: Conjuctiva normal, PERRL. Ears: TMs within normal limits. Nares: (-) discharge, (-) erythema. Oropharynx: Clear, mucous membranes moist, (-) exudates. Neck: Soft, FROM, (-) lymphadenopathy, (-) thyromegaly, (-) JVD. Cardiovascular: Normal sinus rhythm, (-) murmur. Lungs: Clear to auscultation bilaterally (-) wheezes, (-) rales, (-) rhonchi. Abdomen: Soft, non-tender, non-distended, (-) organomegaly, normal bowel sounds. Back: (-) CVA tenderness Extremities: No edema. Skin: Warm, dry, (-) rash. Neuro: Alert and oriented x3, no focal deficits. Psychiatric: Mood normal, affect normal. Triage Information Reviewed: Yes Vital Signs On Initial Exam: Initial Vitals Temp Pulse Resp BP Pulse Ox 97.9 F 112 19 141/85 98 03/09/19 00:33 03/09/19 00:33 03/09/19 00:33 03/09/19 00:33 03/09/19 00:33 Vital Signs Reviewed: Yes Diagnostics - Vital Signs Vital Signs Temp Pulse Resp BP Pulse Ox 03/09/19 00:44 18 03/09/19 00:38 106 16 95 03/09/19 00:33 97.9 F 112 19 141/85 98 - Laboratory Result Diagrams: 03/09/19 01:25 03/09/19 01:25 Lab Statement: Any lab studies that have been ordered have been reviewed, and results considered in the medical decision making process. - EKG 00:57 Cardiac Rate: NL - 92 BPM EKG Rhythm: Sinus Rhythm ST Segment: Normal Ectopy: None Summary of EKG Findings: EKG at 00:57 shows 92 BPM with normal sinus rhythm, no STEMI. Reviewed and interpreted by Dr. Burton. Course/Dx - Course Course Of Treatment: Pt is a 23 y/o M presenting to the ED via EMS after overdosing on heroin. Pt was at home with family members who believed the pt was high. Another person came to patient's house and noted that the patient had agonal breathing, was unconscious and unresponsive. EMS was subsequently called. Pt was given 2 doses of narcan by EMS after which he became awake and alert. Patient was brought under 2209 status to ED. It is reported that the family felt he was a danger to himself and the family did not know what to do if he falls unconscious again. Pt reports that he injected 0.5 grams of heroin intravenously, but now suspects it was laced with fentanyl. Pt has a history of heroin use and recently relapsed after being clean for a year. Pt admits nausea and vomiting. Pt denies headache or chest pain. The pt had used cocaine within the last 12 hours and uses tobacco. On exam, pt was mildly ill-appearing and thin. EKG at 00:57 shows 92 BPM with normal sinus rhythm, no STEMI. Laboratory abnormal findings: WC 13.5, absolute neuts 10.6, absolute monos 1.1, urine protein 1+, hyaline casts present, urine opiates screen presumptive positive, urine cocaine screen presumptive positive, and urine cannabinoids screen presumptive positive. In the ED course, pt was given Ondansetron 4 mg IV and sodium chloride 0.9% IV. Patient remained stable, alert and oriented x3 throughout stay in emergency department. He was capable of ambulating independently with steady gait. Pt was discharged and diagnosed with overdose. - Diagnoses Provider Diagnoses: Overdose Discharge ED - Sign-Out/Discharge Documenting (check all that apply): Patient Departure - discharge Patient Received Moderate/Deep Sedation with Procedure: No - Discharge Plan Condition: Stable Disposition: HOME Patient Education Materials: Polysubstance Abuse (ED) Referrals: Pepito Terrazas DO [Primary Care Provider] - 3 Days Additional Instructions: PLEASE RETURN TO ED FOR ANY NEW OR WORSENING SYMPTOMS. FOLLOW UP WITH YOUR PRIMARY CARE PHYSICIAN WITHIN THREE DAYS. - Billing Disposition and Condition Condition: STABLE Disposition: Home - Attestation Statements Document Initiated by Camelia: Yes Documenting Scribe: Salomon Nesbitt Provider For Whom Camelia is Documenting (Include Credential): Lou Burton MD. Scribe Attestation: Salomon Rosenberg, scribed for Lou Burton MD. on 03/09/19 at 0629. Scribe Documentation Reviewed: Yes Provider Attestation: The documentation as recorded by the Salomon collins accurately reflects the service I personally performed and the decisions made by me, Lou Burton MD. Status of Scribe Document: Viewed
[2019-03-09 01:31] LABS: ABS Eosinophils 0.1 10^3/ul (0-0.6); ABS Lymphocytes 1.7 10^3/ul (1.0-4.8); ABS Monocytes 1.1 10^3/ul (0-0.8); ABS Neutrophils 10.6 10^3/ul (1.5-7.7); Eosinophil % 0.5 %; Hematocrit 42 % (42-52); Hemoglobin 14.2 g/dL (14.0-18.0); Lymphocyte % 12.6 %; Mean Corpuscular HGB Conc 34 g/dL (31-36); Mean Corpuscular Hemoglobin 29 pg (27-31); Mean Corpuscular Volume 85 fL (80-94); Mean Platelet Volume 7.6 fL (7.4-10.4); Nucleated Red Blood Cells % 0.1; Platelet Count 289 10^3/uL (150-450); Red Blood Count 4.95 10^6 /uL (4.18-5.48); Red Cell Distribution Width 14 % (10-15); White Blood Count 13.5 10^3/uL (3.5-10.8)
[2019-03-09 01:49] LABS: ALT 10 U/L (7-52); AST 14 U/L (13-39); Albumin 4.3 g/dL (3.2-5.2); Albumin/Globulin Ratio 1.7 (1-3); Alkaline Phosphatase 54 U/L (34-104); Anion Gap 7 mmol/L (2-11); Blood Urea Nitrogen 22 mg/dL (6-24); CO2 Carbon Dioxide 30 mmol/L (22-32); Calcium 9.1 mg/dL (8.6-10.3); Chloride 102 mmol/L (101-111); EGFR African American 92.8 (>60); EGFR Non-African American 76.7 (>60); Globulin 2.5 g/dL (2-4); Glucose 73 mg/dL (70-100); Potassium 3.7 mmol/L (3.5-5.0); Sodium 139 mmol/L (135-145); Total Protein 6.8 g/dL (6.4-8.9)
[2019-03-09 01:54] LABS: Acetaminophen < 15 mcg/mL; Alcohol < 10 mg/dL (<10); Salicylate < 2.50 mg/dL (<30)
[2019-03-09 02:38] LABS: Urine Appearance Clear; Urine Bacteria Absent (Absent); Urine Bilirubin Negative (Negative); Urine Blood Negative (Negative); Urine Color Yellow; Urine Glucose Negative (Negative); Urine Ketones Negative (Negative); Urine Nitrite Negative (Negative); Urine Protein 1+(30 mg/dL) (Negative); Urine Red Blood Cell Absent (Absent); Urine Specific Gravity 1.015 (1.010-1.030); Urine Urobilinogen Negative (Negative); Urine White Blood Cell Absent (Absent)
[2019-03-09 03:05] LABS: Urine Benzodiazepine Screen None Detected (None Detect); Urine Opiates Screen Presumptive Positive (None Detect)
[2019-03-09 03:45] VITALS: BP 111/52
== END 2019-03-09 03:45 | disposition home or self-care (01) ==
LOC: ED 00:33
DX: T40.1X1A Poisoning by heroin, accidental (unintentional), initial encounter (principal); Y92.9 Unspecified place or not applicable; F41.9 Anxiety disorder, unspecified; F32.9 Major depressive disorder, single episode, unspecified; F17.290 Nicotine dependence, other tobacco product, uncomplicated
CPT/HCPCS: 36415; 80053; 80307; 80320; 80329; 81003; 81015; 83605; 84443; 84484; 85025; 93005; 96361; 96374; 99283; G0480; J2405

== ENCOUNTER 2019-05-31 13:09 | Emergency (ER) | payer SELFPAY ==
--- NOTE | 2019-05-31 13:42 | ED ---
Respiratory - HPI Summary HPI Summary: Pt is a 24 y/o M presenting to the ED with a chief complaint of an upper respiratory infection. He has had a productive cough for about 2 weeks now, and otherwise feels fine, but feels some wheezing. He denies bodyaches, rhinorrhea, or nasal congestion. Denies fevers or SOB. Hx PNA 2 years ago. Hx Lyme. Smokes 1ppd. FHx [place] maternally. - History of Current Complaint Chief Complaint: EDUpperRespComplaint Stated Complaint: COUGH, Time Seen by Provider: 05/31/19 13:28 Hx Obtained From: Patient Onset/Duration: Sudden Onset, Lasting Weeks, Still Present Timing: Constant Initial Severity: Mild Current Severity: None Pain Intensity: 0 Character: Cough (Productive) Sputum Amount: Moderate Aggravating Factor(s): Nothing Alleviating Factor(s): Nothing Associated Signs and Symptoms: Wheezing - Allergy/Home Medications Allergies/Adverse Reactions: Allergies Allergy/AdvReac Type Severity Reaction Status Date / Time No Known Allergies Allergy Verified 05/31/19 13:15 PMH/Surg Hx/FS Hx/Imm Hx Previously Healthy: Yes Endocrine/Hematology History: Denies: Hx Anticoagulant Therapy, Hx Blood Disorders, Hx Diabetes, Hx Thyroid Disease Cardiovascular History: Denies: Hx Hypertension, Hx Pacemaker/ICD, Hx Peripheral Vascular Disease Comment Only: Other Cardiovascular Problems/Disorders - pericarditis Respiratory History: Reports: Hx Chronic Bronchitis Denies: Hx Asthma - no dx but thinks he may have this, Hx Chronic Obstructive Pulmonary Disease (COPD) GI History: Denies: Hx Ulcer Musculoskeletal History: Denies: Hx Arthritis, Hx Osteoporosis Sensory History: Denies: Hx Contacts or Glasses, Hx Hearing Aid Opthamlomology History: Denies: Hx Contacts or Glasses Psychiatric History: Reports: Hx Anxiety, Hx Depression, Hx Substance Abuse, Other Psychiatric Issues/Disorders - manipulative behavior, has stated suicide intent w/o meaning it; grief rxn Denies: Hx Eating Disorder, Hx Panic Disorder, Hx of Violent Episodes Against Others - Surgical History Surgery Procedure, Year, and Place: none - Immunization History Date of Tetanus Vaccine: utd Date of Influenza Vaccine: none Infectious Disease History: No Infectious Disease History: Denies: Hx Clostridium Difficile, Hx Hepatitis, Hx Human Immunodeficiency Virus (HIV), Hx of Known/Suspected MRSA, Hx Shingles, Hx Tuberculosis, Hx Known/ Suspected VRE, Hx Known/Suspected VRSA, History Other Infectious Disease, Traveled Outside the [place] in Last 30 Days - Family History Known Family History: Positive: Cardiac Disease - CAD and [place] <55, Other - Mother w/ unspecified MH problems, of accidental - Social History Alcohol Use: None Hx Substance Use: Yes Substance Use Type: Reports: None Substance Use Comment - Amount & Last Used: denies Hx Tobacco Use: Yes Smoking Status (MU): Current Every Day Smoker Type: eCigarettes Amount Used/How Often: 1 ppd Length of Time of Smoking/Using Tobacco: 5 years Have You Smoked in the Last Year: Yes Review of Systems Negative: Nasal Discharge, Other - congestion Positive: Cough Negative: Myalgia All Other Systems Reviewed And Are Negative: Yes Physical Exam - Summary Physical Exam Summary: Constitutional: Well-developed, Well-nourished, Alert. (-) Distressed Skin: Warm, Dry HENT: Normocephalic; Atraumatic Eyes: Conjunctiva normal Neck: Musculoskeletal ROM normal neck. (-) JVD, (-) Stridor, (-) Nuchal rigidity Cardio: Rhythm regular, rate normal, Heart sounds normal; Intact distal pulses; Radial pulses are 2+ and symmetric. (-) Murmur Pulmonary/Chest wall: Effort normal. R lower lobe rhonchi. (-) Respiratory distress, (-) Wheezes, (-) Rales Abd: Soft, (-) tenderness, (-) Distension, (-) Guarding, (-) Rebound Musculoskeletal: (-) Edema Lymph: (-) Cervical adenopathy Neuro: Alert, Oriented x3 Psych: Mood and affect Normal Triage Information Reviewed: Yes Vital Signs On Initial Exam: Initial Vitals Temp Pulse Resp BP Pulse Ox 98.6 F 100 16 152/87 98 05/31/19 13:12 05/31/19 13:12 05/31/19 13:12 05/31/19 13:12 05/31/19 13:12 Vital Signs Reviewed: Yes Procedures - Sedation Patient Received Moderate/Deep Sedation with Procedure: No Diagnostics - Vital Signs Vital Signs Temp Pulse Resp BP Pulse Ox 05/31/19 13:12 98.6 F 100 16 152/87 98 - Laboratory Lab Statement: Any lab studies that have been ordered have been reviewed, and results considered in the medical decision making process. - Radiology CXR Radiology Interpretation Completed By: Radiologist Summary of Radiographic Findings: No acute cardiopulmonary process by radiograph. ED physician has reviewed this report. Re-Evaluation - Re-Evaluation First Eval Re-Evaluation Time: 14:30 Change: Improved - XR neg for PNA Disposition - Course Course Of Treatment: 24-year-old male with a history of tobacco use presents with cough. Physical exam of the well-appearing male, right lower lobe rhonchi. Afebrile. - X-ray without evidence of pneumonia, suspect URI. Patient advised to cut down smoking. - Diagnoses Provider Diagnoses: Cough, URI (upper respiratory infection) Discharge ED - Sign-Out/Discharge Documenting (check all that apply): Patient Departure - Discharge Plan Condition: Stable Disposition: HOME Patient Education Materials: Upper Respiratory Infection (ED) Referrals: Pepito Terrazas DO [Primary Care Provider] - Additional Instructions: You were seen in the emergency department for a cough Your chest x-ray did not show pneumonia. please try to cut down your smoking as this will help with your cough. If any studies were not completed at the time of discharge you will be called with the relevant results. Please follow up with your primary care doctor in next 2-3 days and return to emergency department for worsening cough, fevers, or concerning symptoms. It was a pleasure taking care of you today. - Billing Disposition and Condition Condition: STABLE Disposition: Home - Attestation Statements Document Initiated by Camelia: Yes Documenting Scribe: Lakesha Miranda Provider For Whom Camelia is Documenting (Include Credential): Sukhi Price MD. Scribe Attestation: Lakesha Rosenberg, scribed for uSkhi Price MD. on 05/31/19 at 1439. Scribe Documentation Reviewed: Yes Provider Attestation: The documentation as recorded by the Lakesha collins accurately reflects the service I personally performed and the decisions made by , Sukhi Price MD. Status of Scribe Document: Viewed
[2019-05-31 14:47] VITALS: BP 146/81
== END 2019-05-31 14:45 | disposition home or self-care (01) ==
LOC: ED 13:09
DX: J06.9 Acute upper respiratory infection, unspecified (principal); F41.9 Anxiety disorder, unspecified; F32.9 Major depressive disorder, single episode, unspecified; F17.290 Nicotine dependence, other tobacco product, uncomplicated
CPT/HCPCS: 71046; 99281

== ENCOUNTER 2019-09-20 14:38 | Emergency (ER) | payer SELFPAY ==
--- NOTE | 2019-09-20 14:44 | ED ---
Substance Abuse/Use - HPI Summary HPI Summary: This patient is a 24 y/o male presenting to [facility] for unrespons[facility] today. [facility] security reports patient was dropped off at the emergency department entrance by friends. Per security, patient's friends attempted to drop patient off in the main entrance and was seen on video by security dropping patient on the ground multiple times. Patient is an IVDU and has hx of opiate use. Upon arrival patient is unresponsive. Patient was given 4 mg of IN Narcan with no response. IV access was obtained and 0.4 mg of IV Narcan was administered with good response. Patient is awake and alert thereafter. Patient denies any physical complaints. Denies headache, neck pain. Patient admits to using heroin today and denies any other substances. - History Of Current Complaint Stated Complaint: OVERDOSE Hx Obtained From: Patient, Other: - [facility] staff, Friend Ingestion History: Type/Name Of Drug - Heroin Overdose Characteristics: IV Timing Of Abuse: Binge Use Severity Currently: Severe Character: Other - unresponsive Aggravating Factor(s): Nothing Alleviating Factor(s): Nothing Associated Signs And Symptoms: Intentional Ingestion, Other: - POSITIVE: unresponsive. NEGATIVE: headache, neck pain - Allergies/Home Medications Allergies/Adverse Reactions: Allergies Allergy/AdvReac Type Severity Reaction Status Date / Time No Known Allergies Allergy Verified 05/31/19 13:15 Home Medications: Home Medications Buprenorp/Nalox 8-2 MG SL TAB [Suboxone 8-2 mg SL TAB*] 1 tab.sl SL TID [History Confirmed 09/20/19] clonazePAM TAB(*) [KlonoPIN TAB(*)] 1 mg PO TID PRN 09/20/19 [History Confirmed 09/20/19] traZODone TAB* [Desyrel TAB*] 150 mg PO BEDTIME 09/20/19 [History Confirmed 01/31] PMH/Surg Hx/FS Hx/Imm Hx Endocrine/Hematology History: Denies: Hx Anticoagulant Therapy, Hx Blood Disorders, Hx Diabetes, Hx Thyroid Disease Cardiovascular History: Denies: Hx Hypertension, Hx Pacemaker/ICD, Hx Peripheral Vascular Disease Comment Only: Other Cardiovascular Problems/Disorders - pericarditis Respiratory History: Reports: Hx Chronic Bronchitis Denies: Hx Asthma - no dx but thinks he may have this, Hx Chronic Obstructive Pulmonary Disease (COPD) GI History: Denies: Hx Ulcer Musculoskeletal History: Denies: Hx Arthritis, Hx Osteoporosis Sensory History: Denies: Hx Contacts or Glasses, Hx Hearing Aid Opthamlomology History: Denies: Hx Contacts or Glasses Psychiatric History: Reports: Hx Anxiety, Hx Depression, Hx Substance Abuse, Other Psychiatric Issues/Disorders - manipulative behavior, has stated suicide intent w/o meaning it; grief rxn Denies: Hx Eating Disorder, Hx Panic Disorder, Hx of Violent Episodes Against Others - Surgical History Surgery Procedure, Year, and Place: none - Immunization History Date of Tetanus Vaccine: utd Date of Influenza Vaccine: none Infectious Disease History: Denies: Hx Clostridium Difficile, Hx Hepatitis, Hx Human Immunodeficiency Virus (HIV), Hx of Known/Suspected MRSA, Hx Shingles, Hx Tuberculosis, Hx Known/ Suspected VRE, Hx Known/Suspected VRSA, History Other Infectious Disease - Family History Known Family History: Positive: Cardiac Disease - CAD and [place] <55, Other - Mother w/ unspecified MH problems, of accidental - Social History Alcohol Use: None Hx Substance Use: Yes Substance Use Type: Reports: None Substance Use Comment - Amount & Last Used: denies Hx Tobacco Use: Yes Smoking Status (MU): Current Every Day Smoker Type: eCigarettes Amount Used/How Often: 1 ppd Length of Time of Smoking/Using Tobacco: 5 years Have You Smoked in the Last Year: Yes Review of Systems - ROS Summary Review of Systems Summary: ROS INITIALLY IS LIMITED DUE TO LEVEL 5 CAVEAT - unresponsive Negative: Fever Negative: Other - NEGATIVE: neck pain Neurological/Mental Status: Other - POSITIVE: unresponsive Negative: Headache All Other Systems Reviewed And Are Negative: Yes Physical Exam - Summary Physical Exam Summary: UPON ARRIVAL Constitutional: Well-developed, Well-nourished, Patient is unresponsive Skin: Warm, Dry HENT: Normocephalic; Atraumatic Eyes: Conjunctiva normal Neck: Musculoskeletal ROM normal neck. (-) JVD, (-) Stridor, (-) Tracheal deviation Cardio: Rhythm regular, rate normal, Heart sounds normal; Intact distal pulses; The pedal pulses are 2+ and symmetric. Radial pulses are 2+ and symmetric. (-) Murmur Pulmonary/Chest wall: Effort normal. (-) Respiratory distress, (-) Wheezes, (-) Rales Abd: Soft, (-) tenderness, (-) Distension, (-) Guarding, (-) Rebound Musculoskeletal: (-) Edema Lymph: (-) Cervical adenopathy Neuro: Patient is unresponsive, no spontaneous movements POST NARCAN Constitutional: Well-developed, Well-nourished, Alert Skin: Warm, Dry HENT: Normocephalic; Atraumatic Eyes: Conjunctiva normal Neck: Musculoskeletal ROM normal neck. (-) JVD, (-) Stridor, (-) Tracheal deviation Cardio: Rhythm regular, rate is tachycardic, Heart sounds normal; Intact distal pulses; The pedal pulses are 2+ and symmetric. Radial pulses are 2+ and symmetric. (-) Murmur Pulmonary/Chest wall: Effort normal. (-) Respiratory distress, (-) Wheezes, (-) Rales Abd: Soft, (-) tenderness, (-) Distension, (-) Guarding, (-) Rebound Musculoskeletal: (-) Edema Lymph: (-) Cervical adenopathy Neuro: Patient is awake and alert, moving all extremities. No neurological deficits. Psych: Mood and affect Normal Triage Information Reviewed: Yes Vital Signs On Initial Exam: Initial Vitals Temp Pulse Resp BP Pulse Ox 97.7 F 114 10 116/76 15 09/20/19 14:47 09/20/19 14:47 09/20/19 14:47 09/20/19 14:47 09/20/19 14:47 Vital Signs Reviewed: Yes Procedures - Sedation Patient Received Moderate/Deep Sedation with Procedure: No Re-Evaluation - Re-Evaluation First Eval Re-Evaluation Time: 13:43 Comment: 0.4 mg IV Narcan administered with good response. Second Eval Comment: Patient awake, alert, steady gait, feels well for dischage home. Course/Dx - Course Assessment/Plan: Patient is a 24 y/o male who presents unresponsive today. CAT call was called overhead and arrives to the ED at 1435. Patient is an IVDU and has hx of opiate use. Upon arrival patient is unresponsive. Patient was given 4 mg of IN Narcan with no response at 1438. IV access was obtained and 0.4 mg of IV Narcan was administered with good response at 1443. Patient is awake and alert thereafter. Patient denies any physical complaints. He denies headache or neck pain. Patient admits to using heroin today and denies any other substances. Patient will be discharged home with follow up from his PCP in 1-3 days. - Diagnoses Provider Diagnoses: Narcotic overdose Discharge ED - Sign-Out/Discharge Documenting (check all that apply): Patient Departure - Discharge home - Discharge Plan Condition: Stable Disposition: HOME Patient Education Materials: Adult Overdose (ED) Referrals: Pepito Terrazas DO [Primary Care Provider] - Additional Instructions: RETURN TO THE EMERGENCY DEPARTMENT FOR CHANGING OR WORSENING SYMPTOMS. Follow up with your primary care provider in 1-3 days. - Billing Disposition and Condition Condition: STABLE Disposition: Home - Attestation Statements Document Initiated by Scribe: Yes Documenting Scribe: Brea Craven Provider For Whom Camelia is Documenting (Include Credential): Slade López DO Scribe Attestation: Brea Rosenberg scribed for Slade López DO on 09/21/19 at 1216. Scribe Documentation Reviewed: Yes Provider Attestation: The documentation as recorded by the Brea collins accurately reflects the service I personally performed and the decisions made by Slade redd DO Status of Scribe Document: Viewed
[2019-09-20 18:03] VITALS: BP 106/79
== END 2019-09-20 18:03 | disposition home or self-care (01) ==
LOC: ED 14:38
DX: T40.601A Poisoning by unspecified narcotics, accidental (unintentional), initial encounter (principal); F11.10 Opioid abuse, uncomplicated; Y92.9 Unspecified place or not applicable; F17.210 Nicotine dependence, cigarettes, uncomplicated; F41.9 Anxiety disorder, unspecified; F32.9 Major depressive disorder, single episode, unspecified
CPT/HCPCS: 99285